=== PATIENT | male | born 1950 | race Caucasian/White ===

== ENCOUNTER 2016-11-22 16:04 | Emergency (ER) | payer MEDICAID, OTHER ==
[2016-11-22 16:17] VITALS: RESP 16; TEMP 98.8
--- NOTE | 2016-11-22 16:19 | EDPHY ---
H & P Stated Complaint: cough, fatigue, decreased sleep x 1 wk Time Seen by Provider: 11/22/16 16:18 HPI/ROS: Chief complaint: Cold symptoms History of present illness: This is a 66-year-old diabetic male who presents to the emergency department for cold symptoms. Patient reports the onset of symptoms over the last day. He reports tactile fevers, sore throat, a nonproductive cough and body aches. In addition he states he has had generalized malaise for the last week. She denies precipitating factors. He denies alleviating factors. He denies other associated signs or symptoms. Review of systems: A 10 point review of systems was obtained and other than described above was negative - Personal History Current Tetanus/Diphtheria Vaccine: Unsure Current Tetanus Diphtheria and Acellular Pertussis (TDAP): Unsure - Medical/Surgical History Hx Asthma: No Hx Chronic Respiratory Disease: No Hx Diabetes: Yes Hx Cardiac Disease: Yes Hx Renal Disease: No Hx Cirrhosis: No Hx Alcoholism: No Hx HIV/AIDS: No Hx Splenectomy or Spleen Trauma: No Other PMH: diabetes, cornary artery disease, depression, HTN - Social History Smoking Status: Never smoked - Physical Exam Exam: General Appearance: Alert,nontoxic. Eyes: Pupils equal and round no pallor or injection. ENT: Tympanic membranes, external auditory canals, external ears and surrounding soft tissue including over the mastoids are unremarkable. Nasopharynx is not injected. There is no rhinorrhea. Oropharynx is injected. There is no edema. There is no exudate. There is no asymmetry. The uvula is midline. No elevation of the tongue. There is no hoarseness, no drooling, no trismus, no stridor. Respiratory: There are no retractions, lungs are clear to auscultation. Cardiovascular: Regular rate and rhythm. Gastrointestinal: Abdomen is soft and non tender, no masses, bowel sounds normal. Neurological: Alert and oriented. Strength and sensation intact and symmetrical. No meningismus. Skin: Warm and dry, no rashes. Musculoskeletal: Neck is supple non tender. Extremities are symmetrical, full range of motion. Psychiatric: Patient is oriented X 3, there is no agitation. Constitutional: Initial Vital Signs Temperature (C) 37.1 C 11/22/16 16:14 Heart Rate 120 H 11/22/16 16:14 Respiratory Rate 16 11/22/16 16:14 Blood Pressure 137/88 H 11/22/16 16:14 O2 Sat (%) 94 11/22/16 16:14 O2 Delivery Mode Room Air Allergies/Adverse Reactions: No Known Allergies Allergy (Verified 11/22/16 16:11) Home Medications: Medication Instructions Recorded METOPROLOL TARTRATE 09/12/11 GLIPIZIDE 05/14/14 Metformin 1000 mg 05/14/14 Guaifenesin/Codeine Phosphate 10 ml PO Q6 #120 liquid 11/22/16 [Codeine-Guaifen 10-100 mg/5 ml] Lisinopril 11/22/16 Oseltamivir Phosphate [Tamiflu 75 75 mg PO BID #9 cap 11/22/16 mg (*)] Rosuvastatin Calcium 11/22/16 buPROPion 11/22/16 Medical Decision Making - Diagnostics Imaging: Chest x-ray with mild bronchitis ED Course/Re-evaluation: Patient seen under the supervision of my secondary supervising physician Dr. Frantz Campos. Patient presents to the emergency department for cold symptoms. Patient is nontoxic. Patient is evaluated as listed, he is influenza A positive. He is within treatment time frame. He is started on Tamiflu. Patient has further been IV hydrated. He states he is feeling well and is requesting to be discharged home. Patient will be discharged home on a full course of Tamiflu. Symptomatic care is discussed including the use of prescribed cough medication. He is asked to follow up with his primary care doctor for recheck. Strict return precautions are given. Patient voiced understanding and agreement with plan. Differential Diagnosis: Included but not limited to upper respiratory tract infection, influenza, pneumonia, bronchitis, unlikely sepsis - Data Points Laboratory Results: Laboratory Results 11/22/16 16:47 11/22/16 16:47 11/22/16 11/22/16 Unknown 16:47 WBC 8.33 10^3/uL (3.80-9.50) RBC 5.25 10^6/uL (4.40-6.38) Hgb 15.6 g/dL (13.7-17.5) Hct 44.5 % (40.0-51.0) MCV 84.8 fL (81.5-99.8) MCH 29.7 pg (27.9-34.1) MCHC 35.1 g/dL (32.4-36.7) RDW 12.2 % (11.5-15.2) Plt Count 194 10^3/uL (150-400) MPV 8.9 fL (8.7-11.7) Neut % (Auto) 80.9 H % (39.3-74.2) Lymph % (Auto) 5.0 L % (15.0-45.0) [place] % (Auto) 9.6 % (4.5-13.0) Eos % (Auto) 3.4 % (0.6-7.6) Baso % (Auto) 0.6 % (0.3-1.7) Nucleat RBC Rel Count 0.0 % (0.0-0.2) Absolute Neuts (auto) 6.74 H 10^3/uL (1.70-6.50) Absolute Lymphs (auto) 0.42 L 10^3/uL (1.00-3.00) Absolute Monos (auto) 0.80 10^3/uL (0.30-0.80) Absolute Eos (auto) 0.28 10^3/uL (0.03-0.40) Absolute Basos (auto) 0.05 10^3/uL (0.02-0.10) Absolute Nucleated RBC 0.00 10^3/uL (0-0.01) Immature Gran % 0.5 % (0.0-1.1) Immature Gran # 0.04 10^3/uL (0.00-0.10) Sodium 142 mEq/L (134-144) Potassium 4.4 mEq/L (3.5-5.2) Chloride 105 mEq/L (97-110) Carbon Dioxide 23 mEq/l (22-31) Anion Gap 14 mEq/L (8-16) BUN 14 mg/dL (7-23) Creatinine 0.9 mg/dL (0.7-1.3) Estimated GFR > 60 Glucose 131 H mg/dL (70-100) Calcium 9.1 mg/dL (8.5-10.4) Influenza Typ A,B (DFA) POSITIVE FOR FLU A H (NEGATIVE) Group A Strep Screen NEGATIVE (NEGATIVE) Group A Strep DNA Pending Medications Given: Discontinued Medications Sodium Chloride (Ns) 1,000 mls @ 0 mls/hr IV ONCE ONE PRN Reason: Wide Open Stop: 11/22/16 16:27 Last Admin: 11/22/16 16:50 Dose: 1,000 mls Sodium Chloride (Ns) 1,000 mls @ 0 mls/hr IV ONCE ONE PRN Reason: Wide Open Stop: 11/22/16 18:10 Last Admin: 11/22/16 18:11 Dose: 1,000 mls Oseltamivir Phosphate (Tamiflu) 75 mg PO EDNOW ONE Stop: 11/22/16 17:09 Last Admin: 11/22/16 17:46 Dose: 75 mg Departure - Departure Disposition: Home, Routine, Self-Care Clinical Impression: Influenza A Condition: Good Instructions: Influenza (ED) Additional Instructions: Follow-up with your primary care doctor this week for recheck Drink plenty of fluids to stay hydrated and get plenty of rest Take Tamiflu as prescribed until finished If symptoms worsen or new symptoms develop return to the emergency department for recheck Referrals: Fidelina Flaherty, PAC [Primary Care Provider] - As per Instructions Prescriptions: Guaifenesin/Codeine Phosphate [Codeine-Guaifen 10-100 mg/5 ml] 10 ml PO Q6 #120 liquid Oseltamivir Phosphate [Tamiflu 75 mg (*)] 75 mg PO BID #9 cap
[2016-11-22] MEDS ORDERED: NS 1,000 ML IV ONE ×2 (16:26→18:09)
[2016-11-22 17:00] LABS: % IMMATURE GRANULYOCYTES 0.5 % (0.0-1.1); ABSOLUTE IMMATURE GRANULOCYTES 0.04 10^3/uL (0.00-0.10); ADD DIFF? NO; ADD MORPH? NO; ADD SCAN? NO; ATYPICAL LYMPHOCYTE FLAG 0 (0-99); FRAGMENT RBC FLAG 0 (0-99); HEMATOCRIT 44.5 % (40.0-51.0); HEMOGLOBIN 15.6 g/dL (13.7-17.5); LEFT SHIFT FLG 0 (0-99); LIPEMIA HEMOLYSIS FLAG 90 (0-99); MEAN CELL HEMOGLOBIN 29.7 pg (27.9-34.1); MEAN CELL HEMOGLOBIN CONCENTR. 35.1 g/dL (32.4-36.7); MEAN CELL VOLUME 84.8 fL (81.5-99.8); MEAN PLATELET VOLUME 8.9 fL (8.7-11.7); PLATELET CLUMPS FLAG 0 (0-99); PLATELET COUNT 194 10^3/uL (150-400); RED BLOOD CELL COUNT 5.25 10^6/uL (4.40-6.38); RED CELL DISTRIBUTION WIDTH 12.2 % (11.5-15.2)
[2016-11-22] MEDS ORDERED: OSELTAMIVIR PHOSPHATE 75 MG CAP PO ONE (17:08)
[2016-11-22 17:16] LABS: ANION GAP 14 mEq/L (8-16); CALCIUM 9.1 mg/dL (8.5-10.4); CARBON DIOXIDE 23 mEq/l (22-31); CHLORIDE 105 mEq/L (97-110); CREATININE 0.9 mg/dL (0.7-1.3); GLOMERULAR FILTRATION RATE > 60; GLUCOSE 131 mg/dL (70-100); POTASSIUM 4.4 mEq/L (3.5-5.2); SODIUM 142 mEq/L (134-144)
--- NOTE | 2016-11-22 17:30 | DX ---
PA and lateral chest History: Dyspnea, cough. Comparison: None available. Findings: Mild peribronchial thickening is present without focal consolidation, pneumothorax, or pleu ral effusion. Heart size is upper normal. Degenerative change is present in the spine. Air distention of the stomach is noted. Impression: Mild bronchitis.
[2016-11-22 18:09] VITALS: BP 100/76; PULSE 108; O2SAT 92
== END 2016-11-22 19:49 | disposition home or self-care (01) ==
DX: J09.X2 Influenza due to identified novel influenza A virus with other respiratory manifestations (principal); E11.9 Type 2 diabetes mellitus without complications; I10 Essential (primary) hypertension; I25.10 Atherosclerotic heart disease of native coronary artery without angina pectoris

== ENCOUNTER 2017-01-19 14:15 | Emergency (ER) | payer MEDICAID, OTHER ==
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
[2017-01-19 16:39] VITALS: BP 114/80; PULSE 87; RESP 20; TEMP 98.6; O2SAT 93
== END 2017-01-19 16:37 | disposition home or self-care (01) ==
DX: S29.9XXA Unspecified injury of thorax, initial encounter (principal); S69.91XA Unspecified injury of right wrist, hand and finger(s), initial encounter; I10 Essential (primary) hypertension; E11.9 Type 2 diabetes mellitus without complications; I25.10 Atherosclerotic heart disease of native coronary artery without angina pectoris; V18.2XXA Unspecified pedal cyclist injured in noncollision transport accident in nontraffic accident, initial encounter

== ENCOUNTER → 2017-02-01 | Outpatient (CLI) | payer OTHER, MEDICAID | LOC: SBRMNEURO 22:44 | PROVIDERS: ATTEND Student in an Organized Health Care Education/Training Program | DX: G47.33 Obstructive sleep apnea (adult) (pediatric) (principal) ==

== ENCOUNTER 2017-06-30 07:23 | Emergency (ER) | payer OTHER, MEDICAID ==
--- NOTE | 2017-06-30 07:34 | EDPHY ---
HPI/HX/ROS/PE/MDM Narrative: CHIEF COMPLAINT: Lower abdominal / left flank pain. HPI: This patient is a 66 year old male with history of kidney stones complaining of lower abdominal and left flank pain onset this morning around 5am, 2.5 hours ago. He was woken up with lower abdominal cramping and developed developed left flank pain, diaphoresis, and nausea after 30-45 minutes. He took four Zantac pills with no relief. He states has had similar symptoms before with his prior kidney stones. He has had kidney stones three times in the past, the most recent being two years ago. He has not required surgical intervention for treatment. He denies vomiting, dysuria, hematuria, fever, or other associated symptoms. REVIEW OF SYSTEMS: Aside from elements discussed in the HPI, a comprehensive 10-point review of systems was reviewed and is negative. PMH: Kidney stones, diabetes mellitus, hyperlipidemia, hypertension SOCIAL HISTORY: Single. Lives in [place]. PCP JAZMYNE Weiss PHYSICAL EXAM: General:Patient is alert, in no acute distress. ENT:Eyes are normal to inspection. ENT inspection normal. Neck: Normal inspection. Full range of motion. Respiratory:No respiratory distress. Breath sounds normal bilaterally. Cardiovascular: Regular rate and rhythm. Strong peripheral pulses. Normal cap refill. Abdomen:The abdomen is nontender to palpation. There are no peritoneal signs. There are normal bowel sounds. Back: Left flank tenderness. Normal to inspection. Skin: Normal color. No rash. Warm and dry. Extremities: Normal appearance. Full range of motion. Neuro: Oriented x3. Normal motor function. Normal sensory function. ED Course: 66 year old male with history of kidney stones presents with lower abdominal cramping and left flank pain with associated nausea onset 2.5 hours ago. Plan for labs including UA, CBC, BMP. I discussed US vs CT scan with the patient, and he would prefer to proceed with abdominal CT. Plan to administer 30mg IV Toradol for symptom relief. 9:[address] Queen, Radiologist. CT abdomen shows bilateral nephrolithiasis. [id number] obstructive calculus noted in proximal left ureter at the L3-L4 level with associated mild to moderate left-sided hydronephrosis. Plan to discharge home in good condition with prescription for Percocet and Zofran for symptom relief. The patient will follow up with urology. Return precautions discussed. The patient is comfortable with this plan. MDM: This patient presents with signs and symptoms of kidney stone, confirmed by CT. I see no signs of pyelonephritis, sepsis, bowel obstruction, bowel perforation or appendicitis. - Data Points Imaging Results: Imaging Impressions Abdomen/Pelvis CT 06/30/17 07:40 Impression: 1. Bilateral nephrolithiasis. 2. Obstructive calculus proximal left ureter at the L3-L4 level with associated mild to moderate left-sided hydronephrosis. The calculus is visualized on the diesel maintenance electrician image. Attention: This CT examination is specifically designed to evaluate patients who are clinically suspected of having acute obstructive uropathy. This examination does not use radiographic contrast, and as such, provides only a limited evaluation of the abdomen, pelvis and retroperitoneum. If there is further clinical suspicion for pathological conditions other than obstructive uropathy, a complete CT evaluation of the abdomen and pelvis utilizing intravenous, oral, and rectal contrast should be considered. Findings discussed with the medical billing coordinator with Brandon Barrios MD at 9: 08 hour, 06/30/2017. Imaging: Discussed imaging studies w/ auto cleaner Radiologist Laboratory Results: Laboratory Results 06/30/17 08:05 06/30/17 08:05 06/30/17 06/30/17 08:05 08:05 WBC 7.54 10^3/uL 10^3/uL (3.80-9.50) RBC 5.43 10^6/uL 10^6/uL (4.40-6.38) Hgb 16.4 g/dL g/dL (13.7-17.5) Hct 48.2 % % (40.0-51.0) MCV 88.8 fL fL (81.5-99.8) MCH 30.2 pg pg (27.9-34.1) MCHC 34.0 g/dL g/dL (32.4-36.7) RDW 12.1 % % (11.5-15.2) Plt Count 237 10^3/uL 10^3/uL (150-400) MPV 9.3 fL fL (8.7-11.7) Neut % (Auto) 63.7 % % (39.3-74.2) Lymph % (Auto) 21.9 % % (15.0-45.0) [place] % (Auto) 8.2 % % (4.5-13.0) Eos % (Auto) 4.8 % % (0.6-7.6) Baso % (Auto) 0.9 % % (0.3-1.7) Nucleat RBC Rel Count 0.0 % % (0.0-0.2) Absolute Neuts (auto) 4.80 10^3/uL 10^3/uL (1.70-6.50) Absolute Lymphs (auto) 1.65 10^3/uL 10^3/uL (1.00-3.00) Absolute Monos (auto) 0.62 10^3/uL 10^3/uL (0.30-0.80) Absolute Eos (auto) 0.36 10^3/uL 10^3/uL (0.03-0.40) Absolute Basos (auto) 0.07 10^3/uL 10^3/uL (0.02-0.10) Absolute Nucleated RBC 0.00 10^3/uL 10^3/uL (0-0.01) Immature Gran % 0.5 % % (0.0-1.1) Immature Gran # 0.04 10^3/uL 10^3/uL (0.00-0.10) Sodium 141 mEq/L mEq/L (134-144) Potassium 4.7 mEq/L mEq/L (3.5-5.2) Chloride 102 mEq/L mEq/L (97-110) Carbon Dioxide 24 mEq/l mEq/l (22-31) Anion Gap 15 mEq/L mEq/L (8-16) BUN 18 mg/dL mg/dL (7-23) Creatinine 1.2 mg/dL mg/dL (0.7-1.3) Estimated GFR > 60 Glucose 144 mg/dL H mg/dL (70-100) Calcium 9.8 mg/dL mg/dL (8.5-10.4) Medications Given: Discontinued Medications Sodium Chloride (Ns) 1,000 mls @ 0 mls/hr IV EDNOW ONE; Wide Open PRN Reason: Protocol Stop: 06/30/17 07:41 Last Admin: 06/30/17 08:04 Dose: 1,000 mls Ketorolac Tromethamine (Toradol) 30 mg IVP EDNOW ONE Stop: 06/30/17 07:41 Last Admin: 06/30/17 08:03 Dose: 30 mg Ondansetron HCl (Zofran) 4 mg IVP EDNOW ONE Stop: 06/30/17 08:12 Last Admin: 06/30/17 08:14 Dose: 4 mg General Time Seen by Provider: 06/30/17 07:32 Initial Vital Signs: Initial Vital Signs Temperature (C) 36.4 C 06/30/17 07:28 Heart Rate 58 L 06/30/17 07:28 Respiratory Rate 18 06/30/17 07:28 Blood Pressure 158/91 H 06/30/17 07:28 O2 Sat (%) 96 06/30/17 07:28 O2 Delivery Mode Room Air Allergies/Adverse Reactions: No Known Allergies Allergy (Verified 11/22/16 16:11) Home Medications: Medication Instructions Recorded METOPROLOL TARTRATE 09/12/11 GLIPIZIDE 05/14/14 Metformin 1000 mg 05/14/14 Lisinopril 11/22/16 Oseltamivir Phosphate [Tamiflu 75 75 mg PO BID #9 cap 11/22/16 mg (*)] Rosuvastatin Calcium 11/22/16 buPROPion 11/22/16 Ondansetron Odt [Zofran Odt] 4 mg PO Q4PRN PRN #10 tab 06/30/17 oxyCODONE/APAP 5/325 [Percocet 5 - 10 mg PO Q4-6PRN PRN #14 tab 06/30/17 5/325] Departure - Departure Disposition: Home, Routine, Self-Care Clinical Impression: Calculus of left kidney Condition: Good Instructions: Kidney Stones (ED), How to Strain Your Urine (ED) Additional Instructions: 1. Take Percocet as prescribed as needed for severe pain. Do not take this medication with Tylenol, as it contains acetaminophen. 2. Take Zofran as prescribed as needed for nausea. 3. Follow up with your urologist within one week. We have referred you to our urologist store protection specialist. 4. Return to the emergency department for fever, severe pain, inability to urinate or other concerns. 5. Strain urine to try and catch the kidney stone and bring this to the urology appointment. Referrals: Fidelina Flaherty PAC [Primary Care Provider] - As per Instructions Hardik Billy MD [Medical Doctor] - As per Instructions Prescriptions: Ondansetron Odt [Zofran Odt] 4 mg PO Q4PRN PRN #10 tab PRN Reason: Nausea oxyCODONE/APAP 5/325 [Percocet 5/325] 5 - 10 mg PO Q4-6PRN PRN #14 tab PRN Reason: For Pain Report Scribed for: Brandon Barrios Report Scribed by: Shelly Tovar Date of Report: 06/30/17 Time of Report: 07:34 Physician Review and Approval Statement: Portions of this note were transcribed by an ED scribe. I personally performed the history, physical exam, and medical decision making; and confirm the accuracy of the information in the transcribed note.
[2017-06-30] MEDS ORDERED: KETOROLAC 30 MG/1 ML SDV IVP ONE (07:40)
[2017-06-30] MEDS ORDERED: NS 1,000 ML IV ONE (07:40)
[2017-06-30] MEDS ORDERED: ONDANSETRON 4 MG/2 ML VIAL ONE (07:45)
[2017-06-30] MEDS ORDERED: ONDANSETRON 4 MG/2 ML VIAL IVP ONE (08:11)
[2017-06-30 08:18] LABS: % IMMATURE GRANULYOCYTES 0.5 % (0.0-1.1); ABSOLUTE IMMATURE GRANULOCYTES 0.04 10^3/uL (0.00-0.10); ADD DIFF? NO; ADD MORPH? NO; ADD SCAN? NO; ATYPICAL LYMPHOCYTE FLAG 10 (0-99); FRAGMENT RBC FLAG 0 (0-99); HEMATOCRIT 48.2 % (40.0-51.0); HEMOGLOBIN 16.4 g/dL (13.7-17.5); LEFT SHIFT FLG 0 (0-99); LIPEMIA HEMOLYSIS FLAG 90 (0-99); MEAN CELL HEMOGLOBIN 30.2 pg (27.9-34.1); MEAN CELL VOLUME 88.8 fL (81.5-99.8); MEAN PLATELET VOLUME 9.3 fL (8.7-11.7); PLATELET CLUMPS FLAG 0 (0-99); PLATELET COUNT 237 10^3/uL (150-400); RED BLOOD CELL COUNT 5.43 10^6/uL (4.40-6.38); RED CELL DISTRIBUTION WIDTH 12.1 % (11.5-15.2)
[2017-06-30 08:39] LABS: ANION GAP 15 mEq/L (8-16); CALCIUM 9.8 mg/dL (8.5-10.4); CARBON DIOXIDE 24 mEq/l (22-31); CHLORIDE 102 mEq/L (97-110); CREATININE 1.2 mg/dL (0.7-1.3); GLOMERULAR FILTRATION RATE > 60; GLUCOSE 144 mg/dL (70-100); POTASSIUM 4.7 mEq/L (3.5-5.2); SODIUM 141 mEq/L (134-144)
[2017-06-30 09:45] VITALS: BP 132/76; PULSE 84; RESP 16; TEMP 97.9; O2SAT 95
== END 2017-06-30 09:43 | disposition home or self-care (01) ==
DX: N20.0 Calculus of kidney (principal); E11.9 Type 2 diabetes mellitus without complications; I10 Essential (primary) hypertension; E86.9 Volume depletion, unspecified; Z79.84 Long term (current) use of oral hypoglycemic drugs
CPT/HCPCS: 74176; 96361; 96374; 96375; 99285; J1885; J2405

== ENCOUNTER 2017-07-02 15:22 | Inpatient (IN) | payer OTHER, MEDICAID ==
--- NOTE | 2017-07-02 15:45 | EDPHY ---
H & P Time Seen by Provider: 07/02/17 15:43 HPI/ROS: Chief complaint. Kidney stone HPI. 66-year-old male seen in our emergency department 2 days ago with diagnosis of a 6 mm stone at the L3-L4 level. Multiple stones in both collecting systems of both kidneys. Patient has been using Percocet and Zofran but returns for inadequate pain relief. Continues to be nauseated. Pain is in the left flank but not really in the abdomen. No significant dysuria. No fever. Similar symptoms previously ROS Constitutional. no fever/chills, no weakness Eyes. no problems with vision ENT. no sore throat, no nasal drainage Cardiovascular. no chest pain Respiratory. no shortness of breath, no cough Abdominal. Left flank pain with nausea . no problems urinating MS. no calf pain/swelling, no neck/back pain, no joint pain Skin. no rash Lymph. no swollen glands Neuro. no headache, no dizziness, no difficulty walking or with speech Past Medical/Surgical History: Past medical history he significant for diabetes, coronary artery disease, hypertension, depression kidney stone Social History: Single, nonsmoker, no alcohol Smoking Status: Never smoked Physical Exam: General Appearance: Alert well-developed male moderate distress vital signs are stable Eyes: Pupils equal and round no pallor or injection. ENT, Mouth: Mucous membranes are moist. Respiratory: There are no retractions, lungs are clear to auscultation. Cardiovascular: Regular rate and rhythm. Gastrointestinal: Abdomen is soft and nontender, no masses, bowel sounds normal. Left flank pain however not worse with palpation Neurological: Awake and alert, sensory and motor exams grossly normal. Skin: Warm and dry, no rashes. Musculoskeletal: Neck is supple nontender. Extremities symmetrical, full range of motion. Psychiatric: Patient is oriented X 3, there is no agitation. Constitutional: Initial Vital Signs Temperature (C) 36.6 C 07/02/17 15:27 Heart Rate 67 07/02/17 15:27 Respiratory Rate 18 07/02/17 15:27 Blood Pressure 136/84 H 07/02/17 15:27 O2 Sat (%) 99 07/02/17 15:27 O2 Delivery Mode Room Air Allergies/Adverse Reactions: No Known Allergies Allergy (Verified 07/02/17 15:26) Home Medications: Medication Instructions Recorded METOPROLOL TARTRATE 09/12/11 GLIPIZIDE 05/14/14 Metformin 1000 mg 05/14/14 Lisinopril 11/22/16 Oseltamivir Phosphate [Tamiflu 75 75 mg PO BID #9 cap 11/22/16 mg (*)] Rosuvastatin Calcium 11/22/16 buPROPion 11/22/16 Ondansetron Odt [Zofran Odt] 4 mg PO Q4PRN PRN #10 tab 06/30/17 oxyCODONE/APAP 5/325 [Percocet 5 - 10 mg PO Q4-6PRN PRN #14 tab 06/30/17 5/325] Medical Decision Making - Diagnostics Imaging Results: Imaging Impressions Abdomen/Pelvis CT 07/02/17 15:52 Impression: 1. Mild to moderate left hydroureteronephrosis secondary to ureterolithiasis, with two obstructing calculi in the mid to proximal left ureter, measuring 6 and 7 mm, at the L4 vertebral body level. 2. Additional left nephrolithiasis. 3. Nonobstructing right nephrolithiasis. 4. Atherosclerotic aorta, without aneurysm. 5. Left lower lobe 5-mm nonspecific noncalcified pulmonary nodule for which follow-up noncontrast CT chest is recommended in one year. 6. Constipation. Attention: This CT examination is specifically designed to evaluate patients who are clinically suspected of having acute obstructive uropathy. This examination does not use radiographic contrast, and as such, provides only a limited evaluation of the abdomen, pelvis, and retroperitoneum. If there is further clinical suspicion for pathological conditions other than obstructive uropathy, a complete CT evaluation of the abdomen and pelvis utilizing intravenous, oral, and rectal contrast should be considered. Findings and recommendations discussed with Emergency Department physician, Vik Rudd M.D., at 1655 hours, on July 02, 2017. Final report concurs with initial preliminary interpretation. Noncontrast CT shows now 2 stones in the ureter where as 2 days ago there was only 1 stone. They are both mid to proximal ureter on the left. Once stone measures 6 mm the other 7 mm. There at the level of L3-4. Moderate proximal hydronephrosis. Incidental finding of left lower lobe pulmonary nodule with suggested follow-up in 1 year Procedures: IV normal saline. IV fentanyl, Toradol, Zofran Review of chart from 2 days ago as well as labs ED Course/Re-evaluation: Re-evaluation 5:00 p.m.. Patient is much more stable Patient and I discussed laboratory and imaging evaluation. We discussed treatment plan including recommendation for admission. He expresses understanding and agreement I consulted and discussed the case with Dr. Johnson, hospitalist, who agrees to the admission I consulted and discussed the case with Dr. Billy, urology, who will see the patient in consultation Differential Diagnosis: Patient has been running a creatinine of 0.9-1.2. Today the creatinine is 1.8. Likely the patient has some degree of dehydration with elevated creatinine however he does have fairly complete obstruction of the left ureter with moderate proximal hydronephrosis. I considered pyelonephritis and kidney stone well - Data Points Laboratory Results: Laboratory Results 07/02/17 16:05 07/02/17 16:05 07/02/17 07/02/17 07/02/17 16:05 16:05 16:05 WBC 14.81 10^3/uL H D 10^3/uL (3.80-9.50) RBC 5.04 10^6/uL 10^6/uL (4.40-6.38) Hgb 15.2 g/dL g/dL (13.7-17.5) Hct 44.0 % % (40.0-51.0) MCV 87.3 fL fL (81.5-99.8) MCH 30.2 pg pg (27.9-34.1) MCHC 34.5 g/dL g/dL (32.4-36.7) RDW 12.2 % % (11.5-15.2) Plt Count 235 10^3/uL 10^3/uL (150-400) MPV 9.7 fL fL (8.7-11.7) Neut % (Auto) 79.5 % H % (39.3-74.2) Lymph % (Auto) 8.6 % L % (15.0-45.0) [place] % (Auto) 9.7 % % (4.5-13.0) Eos % (Auto) 1.5 % % (0.6-7.6) Baso % (Auto) 0.2 % L % (0.3-1.7) Nucleat RBC Rel Count 0.0 % % (0.0-0.2) Absolute Neuts (auto) 11.79 10^3/uL H 10^3/uL (1.70-6.50) Absolute Lymphs (auto) 1.27 10^3/uL 10^3/uL (1.00-3.00) Absolute Monos (auto) 1.43 10^3/uL H 10^3/uL (0.30-0.80) Absolute Eos (auto) 0.22 10^3/uL 10^3/uL (0.03-0.40) Absolute Basos (auto) 0.03 10^3/uL 10^3/uL (0.02-0.10) Absolute Nucleated RBC 0.00 10^3/uL 10^3/uL (0-0.01) Immature Gran % 0.5 % % (0.0-1.1) Immature Gran # 0.07 10^3/uL 10^3/uL (0.00-0.10) Sodium 138 mEq/L mEq/L (134-144) Potassium 4.9 mEq/L mEq/L (3.5-5.2) Chloride 105 mEq/L mEq/L (97-110) Carbon Dioxide 19 mEq/l L mEq/l (22-31) Anion Gap 14 mEq/L mEq/L (8-16) BUN 21 mg/dL mg/dL (7-23) Creatinine 1.8 mg/dL H mg/dL (0.7-1.3) Estimated GFR 38 Glucose 113 mg/dL H mg/dL (70-100) Calcium 10.0 mg/dL mg/dL (8.5-10.4) Urine Color YELLOW Urine Appearance HAZY Urine pH 5.0 (5.0-7.5) Ur Specific [place] 1.015 (1.002-1.030) Urine Protein NEGATIVE (NEGATIVE) Urine Ketones NEGATIVE (NEGATIVE) Urine Blood NEGATIVE (NEGATIVE) Urine Nitrate NEGATIVE (NEGATIVE) Urine Bilirubin NEGATIVE (NEGATIVE) Urine Urobilinogen NEGATIVE EU EU (0.2-1.0) Ur Leukocyte Esterase NEGATIVE (NEGATIVE) Urine RBC 1-3 /hpf /hpf (0-3) Urine WBC 1-3 /hpf /hpf (0-3) Ur Epithelial Cells TRACE /lpf /lpf (NONE-1+) Urine Mucus TRACE /lpf /lpf (NONE-1+) Urine Glucose NEGATIVE (NEGATIVE) Medications Given: Discontinued Medications Fentanyl (Sublimaze) 100 mcg IVP EDNOW ONE Stop: 07/02/17 15:52 Last Admin: 07/02/17 16:00 Dose: 100 mcg Sodium Chloride (Ns) 1,000 mls @ 0 mls/hr IV EDNOW ONE; Wide Open PRN Reason: Protocol Stop: 07/02/17 15:52 Last Admin: 07/02/17 16:04 Dose: 1,000 mls Ketorolac Tromethamine (Toradol) 30 mg IVP EDNOW ONE Stop: 07/02/17 15:52 Last Admin: 07/02/17 16:03 Dose: 30 mg Ondansetron HCl (Zofran) 4 mg IVP EDNOW ONE Stop: 07/02/17 15:52 Last Admin: 07/02/17 16:04 Dose: 4 mg Departure - Departure Disposition: [facility] Inpatient Acute Clinical Impression: Calculus of left kidney Condition: Fair Referrals: [facility] [Other] - As per Instructions
[2017-07-02] MEDS ORDERED: ONDANSETRON 4 MG/2 ML VIAL IVP ONE (15:51)
[2017-07-02] MEDS ORDERED: fentaNYL 100 MCG/2 ML INJ IVP ONE (15:51)
[2017-07-02] MEDS ORDERED: KETOROLAC 30 MG/1 ML SDV IVP ONE (15:51)
[2017-07-02] MEDS ORDERED: NS 1,000 ML IV ONE (15:51)
[2017-07-02 16:17] LABS: % IMMATURE GRANULYOCYTES 0.5 % (0.0-1.1); ABSOLUTE IMMATURE GRANULOCYTES 0.07 10^3/uL (0.00-0.10); ADD DIFF? NO; ADD MORPH? NO; ADD SCAN? NO; ATYPICAL LYMPHOCYTE FLAG 0 (0-99); FRAGMENT RBC FLAG 0 (0-99); HEMOGLOBIN 15.2 g/dL (13.7-17.5); LEFT SHIFT FLG 0 (0-99); LIPEMIA HEMOLYSIS FLAG 90 (0-99); MEAN CELL HEMOGLOBIN 30.2 pg (27.9-34.1); MEAN CELL HEMOGLOBIN CONCENTR. 34.5 g/dL (32.4-36.7); MEAN CELL VOLUME 87.3 fL (81.5-99.8); MEAN PLATELET VOLUME 9.7 fL (8.7-11.7); PLATELET CLUMPS FLAG 0 (0-99); PLATELET COUNT 235 10^3/uL (150-400); RED BLOOD CELL COUNT 5.04 10^6/uL (4.40-6.38); RED CELL DISTRIBUTION WIDTH 12.2 % (11.5-15.2)
[2017-07-02 16:24] LABS: COLOR YELLOW; LEUKOCYTE ESTERASE,URINE NEGATIVE (NEGATIVE); NITRITE,URINE NEGATIVE (NEGATIVE)
[2017-07-02 16:30] LABS: MUCUS TRACE /lpf (NONE-1+)
[2017-07-02 16:34] LABS: ANION GAP 14 mEq/L (8-16); CARBON DIOXIDE 19 mEq/l (22-31); CHLORIDE 105 mEq/L (97-110); CREATININE 1.8 mg/dL (0.7-1.3); GLOMERULAR FILTRATION RATE 38; GLUCOSE 113 mg/dL (70-100); POTASSIUM 4.9 mEq/L (3.5-5.2); SODIUM 138 mEq/L (134-144)
[2017-07-02] MEDS ORDERED: NALOXONE HCL 0.4 MG/ML INJ IVP PRN (18:37)
[2017-07-02] MEDS ORDERED: ONDANSETRON 4 MG/2 ML VIAL IVP PRN (18:42)
[2017-07-02] MEDS ORDERED: PROMETHAZINE HCL 25 MG/ML INJ IVP PRN (18:42)
[2017-07-02] MEDS ORDERED: ACETAMINOPHEN 325 MG TAB PO PRN (18:42)
[2017-07-02] MEDS ORDERED: ONDANSETRON DISINTEGRATING 4 MG TAB PO PRN (18:42)
[2017-07-02] MEDS ORDERED: D50W 25 GM/50 ML SYR IVP PRN (18:52)
--- NOTE | 2017-07-02 19:33 | GHP ---
[f rep st] HISTORY AND PHYSICAL DATE OF ADMISSION: 07/02/2017 HISTORY OF PRESENT ILLNESS: The patient is a 66-year-old gentleman with history of hypertension, hy perlipidemia, diabetes, and nephrolithiasis. He was seen here 2 days ago with flank pain. At that time, he had a CAT scan showing bilateral nephrolithiasis with an obstructive calculus of 6 mm at th e L3-L4 level. This is essentially moderate hydronephrosis. He was discharged with pain medicines and nausea medicines but no Flomax. He did pretty well with a couple days, although today he had si gnificantly worse pain. He presents with nausea and worsening abdominal pain. He said he has had p retty poor p.o. intake secondary to inability to eat and drink during his nausea, pain. He has not had fever, chills, nausea, vomiting. REVIEW OF SYSTEMS: Complete 10-point review of systems conducted negative except as noted in the HP I. PAST MEDICAL HISTORY: 1. Hypertension. 2. Hyperlipidemia. 3. Episode of influenza. 4. Nephrolithiasis. ALLERGIES: No known drug allergies. HOME MEDICATIONS: We do not have an updated list, but appears to be rosuvastatin, metoprolol, metfo rmin, lisinopril, glipizide, bupropion. SOCIAL HISTORY: Drinks occasional alcohol. No tobacco. 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 FAMILY HISTORY: Negative for nephrolithiasis. PHYSICAL EXAMINATION: VITAL SIGNS: Temperature 36.6, blood pressure 136/84, pulse 67, breathing 18 times a minute, 99% on room air. GENERAL: No acute distress. Sclerae anicteric. Oropharynx elie r. Mucous membranes moist. NECK: Supple without lymphadenopathy or JVD. LUNGS: Clear to auscult ation bilaterally. HEART: S1, S2. ABDOMEN: Soft, nontender, nondistended. LOWER EXTREMITIES: N o edema. Calves nontender. SKIN: Without rash. NEUROLOGIC: Exam is nonfocal. LABORATORY: UA is remarkably totally negative. Sodium 138, potassium 4.9, chloride 105, bicarb 19, BUN 21, creatinine 1.8. This is above his baseline of about 1.2. Glucose 113, calcium 10. White count 14.8, hematocrit 44, platelets are 235,000. CT images reviewed and interpreted by me shows le ft-sided hydronephrosis, [id number] nature with 2 obstructing calculi in the proximal left ure ter, 6 and 7 mm respectively at the L4 body level. Additional left nephrolithiasis, nonobstructing right nephrolithiasis. Atherosclerotic aorta without aneurysm. Two left lower lobe 5 mm pulmonary nodule, which followup contrast CT is recommended in 1 year, as well as constipation. I have discussed the case Dr. Vik Rudd. ASSESSMENT/PLAN: This 66-year-old gentleman presents with nephrolithiasis, hydronephrosis, and kidn ey injury. 1. Nephrolithiasis. These stones are greater than 5 mm, unlikely to pass. We will strain his urin e and provide with Flomax. Urology will see him in the morning. He is n.p.o. Regarding symptom ma nagement, we will give him IV Phenergan and Dilaudid GEOMETRICIAN. 2. Kidney injury. This is secondary to a left kidney obstruction and poor p.o. intake. We will gi ve him IV fluids and follow. 3. Diabetes. I will put him on some lispro sliding scale. His last hemoglobin A1c was in a good r lucian of 7. 4. Prophylaxis. Pharmacologic prophylaxis indicated if in the hospital for greater than 24 hours. Given his likely need for surgical procedure, we hold and just provide SCDs now. 5. Hypertension. We will continue his medications and they have been reconciled. 6. Pain as above. DISPOSITION: Inpatient status. /[id number]/MODL
[2017-07-02] MEDS: TAMSULOSIN HCL 0.4 MG CAP PO SCH (21:07)
[2017-07-02] MEDS: NS 1,000 ML IV SCH (21:18)
[2017-07-02] MEDS: HYDROmorphONE/DILAUDID 6 MG/30 ML PCA IV PRN (21:18)
[2017-07-02] MEDS: INSULIN GLARGINE 100 UNITS/ML SYRINGE SC SCH (21:46)
[2017-07-02] MEDS: METOPROLOL SUCCINATE XR 25 MG TAB PO SCH (22:29)
[2017-07-03] MEDS: NS 1,000 ML IV SCH ×2 (05:16→22:59)
[2017-07-03 05:32] LABS: ANION GAP 10 mEq/L (8-16); CARBON DIOXIDE 23 mEq/l (22-31); CHLORIDE 105 mEq/L (97-110); CREATININE 1.7 mg/dL (0.7-1.3); GLOMERULAR FILTRATION RATE 41; GLUCOSE 91 mg/dL (70-100); POTASSIUM 4.3 mEq/L (3.5-5.2); SODIUM 138 mEq/L (134-144)
[2017-07-03] MEDS: INSULIN LISPRO 100 UNIT/ML SC SCH ×3 (08:04→18:35)
[2017-07-03] MEDS: TAMSULOSIN HCL 0.4 MG CAP PO SCH (08:58)
[2017-07-03] MEDS: buPROPion SR 150 MG TAB PO SCH (08:58)
[2017-07-03] MEDS: (Liraglutide [Victoza 2-Pak] 1.2 MG) PO SCH (08:59)
[2017-07-03] MEDS ORDERED: LIRAGLUTIDE 1.2 MG PO SCH (09:00)
[2017-07-03] MEDS ORDERED: MAGNESIUM HYDROXIDE 30 ML UDCUP PO PRN (13:21)
[2017-07-03] MEDS ORDERED: BISACODYL 10 MG SUPP PR PRN (13:21)
--- NOTE | 2017-07-03 13:28 | HOSPPROG ---
Hospitalist Progress Note Assessment/Plan: L hydronephrosis with 2 obstructing ureteral calculi -appreciate Dr Zambrano's assistance, possible removal in AM if not passing spontaneously KELI -continue IVF, follow creatinine HTN -hold MIRTA-I Hyperlipidemia -home med obesity constipation -bowel protocol, discussed sara important bc on pain meds type 2 DM -PO med, QHS long acting insulin, holding metformin depression -home med DVT prophy- lovenox FULL CODE PCP Dr Bee (sp?) ([facility]) Dispo- 1-2 more mdnts, depending upon pain and if surgical intervention needed Subjective: Pain OK with meds. No BM for several days. OK with surgery to remove if not passing. Dr Zambrano in earlier per RN, no note in chart yet. Denies CP/SOB/n/v. Objective: Vital Signs Temp Pulse Resp BP Pulse Ox 97.6 F 59 L 17 121/73 H 96 07/03/17 08:42 07/03/17 08:42 07/03/17 08:42 07/03/17 08:42 07/03/17 08:42 Laboratory Results 07/03/17 04:45 07/02/17 07/03/17 07/04/17 11:59 11:59 11:59 Intake Total 1998 Output Total 1100 Balance 898 - Pending Discharge Pending Discharge Within 48 Hours: Yes Pending Discharge Date: 07/05/17 Pending Discharge Time: 11:00 - Physical Exam Constitutional: no apparent distress, appears nourished, obese Eyes: anicteric sclera, EOMI Ears, Nose, Mouth, Throat: moist mucous membranes, hearing normal Cardiovascular: regular rate and rhythym, no murmur, rub, or gallop Respiratory: no respiratory distress, no rales or rhonchi, clear to auscultation Gastrointestinal: soft, non-tender abdomen, no palpable masses, No guarding, No rebound, No distension Skin: warm Psychiatric: interacting appropriately, not anxious, not encephalopathic, thought process linear ICD10 Worksheet Patient Problems: Problems Problem Status Onset Calculus of left kidney Acute
--- NOTE | 2017-07-03 18:05 | SOAPPROG ---
[facility] Progress Note Assessment/Plan: Assessment: Calculus of left kidney Acute Plan ureteroscopy Monday at pt desire Plan: as noted 07/03/17 18:03 Subjective: feeling fine and desires waiting on tx Objective: Vital Signs Temp Pulse Resp BP Pulse Ox 36.6 C 71 18 130/79 H 90 L 07/03/17 17:52 07/03/17 17:52 07/03/17 17:52 07/03/17 17:52 07/03/17 17:52 Laboratory Results 07/03/17 04:45 07/02/17 07/03/17 07/04/17 05:59 05:59 05:59 Intake Total 1997 1200 Output Total 900 200 Balance 1098 1000 Physical Exam - Physical Exam General Appearance: alert Respiratory: No respiratory distress Cardiac/Chest: regular rate, rhythm Abdomen: soft Back: No CVA tenderness Extremities: No calf tenderness Neuro/Psych: no motor/sensory deficits, alert, oriented x 3 ICD10 Worksheet Patient Problems: Problems Problem Status Onset Calculus of left kidney Acute
[2017-07-03] MEDS ORDERED: ceFAZolin 2 GM/DEXTROSE 100 ML IV ONE (18:06)
[2017-07-03] MEDS: POLYETHYLENE GLYCOL 3350 17 GM PKT PO SCH (18:35)
[2017-07-03] MEDS: INSULIN GLARGINE 100 UNITS/ML SYRINGE SC SCH (20:43)
[2017-07-03] MEDS: SENNOSIDES/DOCUSATE SODIUM TAB PO SCH (20:44)
[2017-07-03] MEDS: ROSUVASTATIN CALCIUM 20 MG TAB PO SCH (20:44)
[2017-07-03] MEDS: METOPROLOL SUCCINATE XR 25 MG TAB PO SCH (20:44)
[2017-07-03] MEDS ORDERED: INSULIN DETEMIR 30 UNIT SQ SCH ×2 (21:00)
[2017-07-03] MEDS: HYDROmorphONE/DILAUDID 6 MG/30 ML PCA IV PRN (23:30)
[2017-07-04 05:15] LABS: HEMATOCRIT 42.7 % (40.0-51.0); HEMOGLOBIN 14.7 g/dL (13.7-17.5); MEAN CELL HEMOGLOBIN 30.5 pg (27.9-34.1); MEAN CELL HEMOGLOBIN CONCENTR. 34.4 g/dL (32.4-36.7); MEAN CELL VOLUME 88.6 fL (81.5-99.8); RED BLOOD CELL COUNT 4.82 10^6/uL (4.40-6.38); RED CELL DISTRIBUTION WIDTH 11.9 % (11.5-15.2)
[2017-07-04 05:31] LABS: ANION GAP 15 mEq/L (8-16); CALCIUM 9.2 mg/dL (8.5-10.4); CARBON DIOXIDE 19 mEq/l (22-31); CHLORIDE 106 mEq/L (97-110); CREATININE 1.4 mg/dL (0.7-1.3); GLOMERULAR FILTRATION RATE 51; GLUCOSE 127 mg/dL (70-100); POTASSIUM 4.7 mEq/L (3.5-5.2); SODIUM 140 mEq/L (134-144)
[2017-07-04] MEDS: TAMSULOSIN HCL 0.4 MG CAP PO SCH (08:36)
[2017-07-04] MEDS: buPROPion SR 150 MG TAB PO SCH (08:36)
[2017-07-04] MEDS: SENNOSIDES/DOCUSATE SODIUM TAB PO SCH ×2 (08:36→21:30)
[2017-07-04] MEDS: INSULIN LISPRO 100 UNIT/ML SC SCH ×3 (08:36→17:52)
[2017-07-04] MEDS: (Liraglutide [Victoza 2-Pak] 1.2 MG) PO SCH (08:37)
[2017-07-04] MEDS: POLYETHYLENE GLYCOL 3350 17 GM PKT PO SCH (08:37)
[2017-07-04] MEDS: HYDROmorphONE/DILAUDID 6 MG/30 ML PCA IV PRN (09:04)
--- NOTE | 2017-07-04 12:41 | HOSPPROG ---
Hospitalist Progress Note Assessment/Plan: L hydronephrosis with 2 obstructing ureteral calculi -revwd care plan with Dr Zambrano, procedure today, likely DC in AM if does well post-op KELI -improved, continue IVF, follow creatinine HTN -hold MIRTA-I Hyperlipidemia -home med obesity constipation -bowel protocol type 2 DM -PO med, QHS long acting insulin, holding metformin depression -home med DVT prophy- lovenox FULL CODE PCP Dr Bee (sp?) ([facility]) Dispo- 1 more mdnts if surgical intervention successful and pain resolves Subjective: Having procedure today, no BM yet. Pain OK with meds. Some nausea, no vomiting. No CP/SOB. Objective: Vital Signs Temp Pulse Resp BP Pulse Ox 98.3 F 68 18 122/77 H 96 07/04/17 11:46 07/04/17 11:46 07/04/17 11:46 07/04/17 11:46 07/04/17 11:46 Laboratory Results 07/04/17 05:08 07/04/17 05:08 07/03/17 07/04/17 07/05/17 11:59 11:59 11:59 Intake Total 1997 3860 Output Total 1100 600 350 Balance 898 3260 -350 - Pending Discharge Pending Discharge Within 24 Hours: Yes Pending Discharge Date: 07/05/17 Pending Discharge Time: 11:00 - Physical Exam Constitutional: no apparent distress, appears nourished, uncomfortable Eyes: PERRL, anicteric sclera Ears, Nose, Mouth, Throat: moist mucous membranes Cardiovascular: regular rate and rhythym, no murmur, rub, or gallop, No edema Respiratory: no respiratory distress, no rales or rhonchi, clear to auscultation Gastrointestinal: normoactive bowel sounds, No guarding, No rebound, No distension Skin: warm, No rash Psychiatric: interacting appropriately, not anxious, not encephalopathic, thought process linear ICD10 Worksheet Patient Problems: Problems Problem Status Onset Calculus of left kidney Acute
--- NOTE | 2017-07-04 12:50 | PDHPUP ---
History & Physical Update H&P update statement: This history and physical update is based on an assessment of the patient which was completed after admission or registration (within 24 hours), but prior to the surgery/procedure. H&P update: H&P reviewed & patient examined, no change in patient's condition since H&P completed
[2017-07-04] MEDS ORDERED: ceFAZolin 2 GM/DEXTROSE 100 ML IV ONE (12:51)
[2017-07-04] MEDS ORDERED: LIDOCAINE 2% JELLY 20 ML (UROJECT) ONE (13:59)
[2017-07-04] MEDS ORDERED: IOPAMIDOL (ISOVUE-M 300) 15 ML VIAL ONE (13:59)
--- NOTE | 2017-07-04 14:10 | PDANEPAE ---
ANE Past Medical History - Cardiovascular History Hx Hypertension: Yes - Pulmonary History Hx Oxygen in Use at Home: No Hx Sleep Apnea: Yes Sleep Apnea Screening Result - Last Documented: Positive - Endocrine History Hx Diabetes: Yes ANE Patient History - Allergies Allergies/Adverse Reactions: No Known Allergies Allergy (Verified 07/02/17 15:26) - Home Medications Home Medications: glipiZIDE [Glipizide ER] 10 mg PO DAILY 05/14/14 [Last Taken 07/02/17] metFORMIN HCL [Glucophage 500 mg (*)] 1,000 mg PO BIDMEAL 05/14/14 [Last Taken 07/02/17 09:00] Lisinopril [Zestril 2.5 mg (*)] 2.5 mg PO DAILY 11/22/16 [Last Taken 07/02/17] Rosuvastatin Calcium [Crestor 20mg (*)] 20 mg PO HS 11/22/16 [Last Taken ] Aspirin [Aspirin 81mg (*)] 81 mg PO DAILY 07/02/17 [Last Taken 07/01/17] Insulin Detemir [Levemir Flextouch] 30 units SQ HS 07/02/17 [Last Taken 07/01/17 ] Liraglutide [Victoza 2-Shahram] 1.2 mg PO DAILY 07/02/17 [Last Taken 07/02/17] Metoprolol Succinate Xr [Toprol Xl 25 mg (*)] 25 mg PO HS 07/02/17 [Last Taken 07/01/17] buPROPion SR [Wellbutrin 150mg SR (*)] 300 mg PO DAILY 07/02/17 [Last Taken ] - NPO status NPO Since - Liquids (Date): 07/04/17 NPO Since - Liquids (Time): 00:00 NPO Since - Solids (Date): 07/04/17 NPO Since - Solids (Time): 00:00 - Smoking Hx Smoking Status: Never smoked ANE Labs/Vital Signs - Labs Result Diagrams: 07/04/17 05:08 07/04/17 05:08 - Vital Signs Blood Pressure: 122/77 Heart Rate: 68 Respiratory Rate: 18 O2 Sat (%): 96 Height: 187.96 cm Weight: 104.3 kg ANE Physical Exam - Airway Neck exam: FROM Mouth exam: normal dental/mouth exam - Pulmonary Pulmonary: no respiratory distress, no rales or rhonchi, clear to auscultation - Cardiovascular Cardiovascular: regular rate and rhythym, no murmur, rub, or gallop - ASA Status ASA Status: II ANE Anesthesia Plan Anesthesia Plan: GA w LMA
[2017-07-04] MEDS ORDERED: PROPOFOL 200 MG/20 ML VIAL ONE (14:14)
[2017-07-04] MEDS ORDERED: fentaNYL 100 MCG/2 ML INJ ONE ×2 (14:14→14:57)
[2017-07-04] MEDS ORDERED: LIDOCAINE 2% 5 ML SDV ONE (14:15)
[2017-07-04] MEDS ORDERED: LIDOCAINE 2% JELLY 5 ML TUBE ONE (14:15)
[2017-07-04] MEDS ORDERED: ONDANSETRON 4 MG/2 ML VIAL ONE (14:15)
[2017-07-04] MEDS ORDERED: NALOXONE HCL 0.4 MG/ML INJ IVP PRN (14:38)
[2017-07-04] MEDS ORDERED: ONDANSETRON 4 MG/2 ML VIAL IVP PRN (14:38)
[2017-07-04] MEDS ORDERED: ENALAPRILAT DIHYDRATE 1.25 MG/ML VIAL IVP PRN (14:38)
[2017-07-04] MEDS ORDERED: LR 500 ML IV PRN (14:38)
[2017-07-04] MEDS ORDERED: fentaNYL 100 MCG/2 ML INJ IVP PRN (14:38)
[2017-07-04] MEDS ORDERED: LABETALOL HCL 5 MG/ML 20 ML MDV IVP PRN (14:38)
[2017-07-04] MEDS ORDERED: PROMETHAZINE HCL 25 MG/ML INJ IVP PRN (14:38)
--- NOTE | 2017-07-04 15:50 | POSTOPPROG ---
Post Op Note Date of Operation: 07/04/17 Surgeon: Clinton Zambrano Anesthesiologist: doug Anesthesia: LMA Pre-op Diagnosis: left ureteral stone Post-op Diagnosis: same Procedure: ureteroscopy--dictated Inf/Abcess present in the surg proc area at time of surgery?: No EBL: Minimal Drains: Other (stent)
--- NOTE | 2017-07-04 15:52 | POSTANESTH ---
Post Anesthetic Evaluation Cardiovascular Status: Normal, Stable, Similar to Pre-Op Cond Respiratory Status: Normal, Stable, Similar to Pre-op Cond. Level of Consciousness/Mental Status: Can Participate in Eval, Mildly Sleepy, Arousable Pain Control: Adequate, Prn Tx Ordered Nausea/Vomiting Control: Adequate, Prn Tx Ordered Complications Possibly Related to Anesthesia: None Noted
[2017-07-04 17:49] LABS: ANION GAP 14 mEq/L (8-16); CALCIUM 9.1 mg/dL (8.5-10.4); CARBON DIOXIDE 20 mEq/l (22-31); CHLORIDE 104 mEq/L (97-110); CREATININE 1.2 mg/dL (0.7-1.3); GLOMERULAR FILTRATION RATE > 60; GLUCOSE 132 mg/dL (70-100); POTASSIUM 4.5 mEq/L (3.5-5.2); SODIUM 138 mEq/L (134-144)
--- NOTE | 2017-07-04 17:49 | GOP ---
[f rep st] OPERATIVE REPORT DATE OF OPERATION: 07/04/2017 SURGEON: Clinton Zambrano MD ANESTHESIOLOGIST: Jayson Cortez MD PREOPERATIVE DIAGNOSIS: Left ureteral stone with hydronephrosis. POSTOPERATIVE DIAGNOSIS: Left ureteral stone with hydronephrosis. PROCEDURE PERFORMED: Cystoscopy, retrograde ureteral pyelogram, ureteroscopy with stone manipulatio n, and placement of a stent under fluoroscopic control. FINDINGS: DESCRIPTION OF PROCEDURE: After appropriate anesthesia, prep and drape in normal sterile fashion, a nd normal time-out, cystoscope was passed into the bladder. He had mild BPH. The left ureteral agustin fice was cannulated with a Monarch catheter, retrograded. Revealed a proximal ureteral stone and so me nephrolithiasis and hydronephrosis above the stone. I was able to pass a guidewire beyond the st one. Then, a ureteral access sheath placed up to below the stone, and then with the flexible ureter oscope, passed it up and the stone dislodged and went up into the upper pole calyx. It was fragment ed using a holmium laser, and then there were 2 other stones throughout the kidney that were lasered , but because of the obstruction and the edema and kind of the inflammatory reaction of the obstruct ed renal pelvis, I got to the point where I was not able to really visualize the stones adequately. I felt they were of relatively small caliber, so I elected not to pursue it further because of the poor visibility. I was able to pass a 4.7 multi-length stent and placed it in the renal pelvis and it curled in the bladder. Uro-Jet placed in the urethra, Snowden catheter placed, and he will leave t he stent in and then we will remove the stent in approximately 10 days because of the diffuse inflam matory reaction of the renal pelvis and the ureter. No specimens obtained, and he tolerated the pro cedure well. /[id number]/MODL
[2017-07-04] MEDS: LACTULOSE 20 GM/30 ML UDCUP PO PRN ×2 (18:43→21:29)
[2017-07-04] MEDS: METOPROLOL SUCCINATE XR 25 MG TAB PO SCH (21:28)
[2017-07-04] MEDS: ROSUVASTATIN CALCIUM 20 MG TAB PO SCH (21:31)
[2017-07-04] MEDS: INSULIN GLARGINE 100 UNITS/ML SYRINGE SC SCH (21:38)
[2017-07-05 03:57] VITALS: O2SAT 96
[2017-07-05 07:33] VITALS: BP 153/96; PULSE 92; RESP 17; TEMP 98.4
[2017-07-05] MEDS: SENNOSIDES/DOCUSATE SODIUM TAB PO SCH (08:04)
[2017-07-05] MEDS: TAMSULOSIN HCL 0.4 MG CAP PO SCH (08:04)
[2017-07-05] MEDS: buPROPion SR 150 MG TAB PO SCH (08:04)
[2017-07-05] MEDS: POLYETHYLENE GLYCOL 3350 17 GM PKT PO SCH (08:05)
[2017-07-05] MEDS: INSULIN LISPRO 100 UNIT/ML SC SCH (08:06)
[2017-07-05] MEDS ORDERED: MAGNESIUM HYDROXIDE 30 ML UDCUP PO SCH (09:00)
[2017-07-05] MEDS ORDERED: (Liraglutide [Victoza 2-Pak] 1.2 MG) PO SCH (09:00)
--- NOTE | 2017-07-05 11:12 | GDS ---
[f rep st] DISCHARGE SUMMARY BRIEF HPI: This is a pleasant 66-year-old man who was admitted with a left ureteral stone, hydronep hrosis. After discussion of his options and potential risks and benefits, he underwent a cystoscopy with retrograde ureteral pyelogram, ureteroscopy with stone manipulation and placement of stent by Dr. Zambrano on 07/04/2017, without difficulty. The patient is being discharged home in good condition . He does have a stent in place and is to have this removed in our office in 10 days. We will disc harge him home with a prescription for Uribel to use for burning with urination. /[id number]/MODL
== END 2017-07-05 12:10 | disposition home or self-care (01) | DRG 694 ==
LOC: F1N 18:31
PROVIDERS: ADMIT Internal Medicine; ATTEND Internal Medicine
PROC: 0T778DZ Dilation of Left Ureter with Intraluminal Device, Via Natural or Artificial Opening Endoscopic (ICD-10-PCS; principal; 2017-07-04 13:45)
DX: N13.2 Hydronephrosis with renal and ureteral calculous obstruction (principal); N17.9 Acute kidney failure, unspecified; I10 Essential (primary) hypertension; E78.5 Hyperlipidemia, unspecified; E11.9 Type 2 diabetes mellitus without complications; E66.9 Obesity, unspecified; K59.00 Constipation, unspecified; Z79.4 Long term (current) use of insulin
CPT/HCPCS: 96374; C1758; C1769; C1894; C2625; J0690; J1170; J1815; J1885; J2405; J2550; J2704; J3010; Q9967

== ENCOUNTER 2017-08-12 18:46 | Emergency (ER) | payer OTHER, MEDICAID ==
[2017-08-12 19:05] VITALS: BP 104/73; PULSE 79; RESP 17; TEMP 98.8; O2SAT 94
--- NOTE | 2017-08-12 19:17 | EDPHY ---
H & P Stated Complaint: genital herpes outbreak is out of valacyclovir Time Seen by Provider: 08/12/17 19:15 HPI/ROS: HPI: This is a 66-year-old male complains of Chief Complaint: genital herpes outbreak is out of valacyclovir Location: Penis Quality: Herpes Duration: Since last night Signs and Symptoms:+ tingling, + itching, + redness, + sores on penis, + sensitive to touch Timing: Rapid onset Severity: [id number] Context: Patient has a history of diabetes and was diagnosed with herpes in his teenage years. His last outbreak was 1 month ago. He usually uses valacyclovir for 3 days but he has run out of his medication and it is the weekend. He complains of tingling in itchiness on his penis yesterday, late last night he developed sores better sensitive and painful to touch. No discharge. No fever. Denies penile discharge. Modifying Factors: Did not call primary care provider Comment: ROS: Constitutional: No fever, no chills, no weight loss Eyes: No blurred vision Respiratory: No shortness of breath, no cough Cardiovascular: No chest pain Gastrointestinal: No nausea, no vomiting no diarrhea Genitourinary: No dysuria Extremities: No myalgias Neurologic: No weakness, no numbness Skin: + rashe Hematologic: No bruising, no bleeding MEDICAL/SURGICAL/SOCIAL HISTORY: Medical history: Diabetes, cornary artery disease, depression, HTN, kidney stones Surgical history: denies Social history: Unemployed. CONSTITUTIONAL: Elderly white male, awake and alert, no obvious distress HEENT: Atraumatic and normocephalic, PERRL, EOMI. Tympanic membranes clear. Oropharynx clear, no exudate and moist pink mucosa. Airway patent. No lymphadenopathy. No meningismus. Cardiovascular: Normal S1/S2, regular rate, regular rhythm, without murmur rub or gallop. PULMONARY/CHEST: Symmetrical and nontender. Clear to auscultation bilaterally. Good air movement. No accessory muscle usage. ABDOMEN: Soft, nondistended, nontender, no rebound, no guarding, no peritoneal signs, no masses or organomegaly. No CVAT. : Descended testes, circumcised penis, 4 tiny, heart an inflamed papules on his shaft. No penile discharge. EXTREMITIES: 2/2 pulses, no deformities, no clubbing, no cyanosis or edema. NEUROLOGICAL: no focal neuro deficits. GCS 15. SKIN: Warm and dry, no erythema. no rash. Good capillary refill. Source: Patient Exam Limitations: No limitations - Personal History Current Tetanus/Diphtheria Vaccine: Unsure - Medical/Surgical History Hx Asthma: No Hx Chronic Respiratory Disease: No Hx Diabetes: Yes Hx Cardiac Disease: Yes Hx Renal Disease: Yes Hx Cirrhosis: No Hx Alcoholism: No Hx HIV/AIDS: No Hx Splenectomy or Spleen Trauma: No Other PMH: diabetes, cornary artery disease, depression, HTN, kidney stones - Social History Smoking Status: Never smoked Constitutional: Initial Vital Signs Temperature (C) 37.1 C 08/12/17 19:03 Heart Rate 79 08/12/17 19:03 Respiratory Rate 17 08/12/17 19:03 Blood Pressure 104/73 08/12/17 19:03 O2 Sat (%) 94 08/12/17 19:03 O2 Delivery Mode Room Air Allergies/Adverse Reactions: No Known Allergies Allergy (Verified 08/12/17 19:03) Home Medications: Medication Instructions Recorded glipiZIDE [Glipizide ER] 10 mg PO DAILY 05/14/14 metFORMIN HCL [Glucophage 500 mg 1,000 mg PO BIDMEAL 05/14/14 (*)] Lisinopril [Zestril 2.5 mg (*)] 2.5 mg PO DAILY 11/22/16 Rosuvastatin Calcium [Crestor 20mg 20 mg PO HS 11/22/16 (*)] Aspirin [Aspirin 81mg (*)] 81 mg PO DAILY 07/02/17 Insulin Detemir [Levemir Flextouch] 30 units SQ HS 07/02/17 Liraglutide [Victoza 2-Shahram] 1.2 mg PO DAILY 07/02/17 Metoprolol Succinate Xr [Toprol Xl 25 mg PO HS 07/02/17 25 mg (*)] buPROPion SR [Wellbutrin 150mg SR 300 mg PO DAILY 07/02/17 (*)] Valacyclovir HCl [Valacyclovir] 500 mg PO BID 7 Days #14 tablet 08/12/17 Medical Decision Making ED Course/Re-evaluation: Given valacyclovir; given 7 day course due to history of diabetes. Differential Diagnosis: Differential diagnosis includes candidiasis, dermatitis, herpes. 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 Wear cotton underwear. Try not to touch the area. If he touches area please wash her hands thoroughly with warm water and soap. Please inform your sexual partners. Take all medication as directed. Referrals: Fidelina Flaherty PAC [Primary Care Provider] - As per Instructions Prescriptions: Valacyclovir HCl [Valacyclovir] 500 mg PO BID 7 Days #14 tablet
[2017-08-12] MEDS ORDERED: ACYCLOVIR 400 MG TAB PO ONE (19:21)
[2017-08-12] MEDS ORDERED: valACYclovir 500 MG TAB PO ONE (19:25)
== END 2017-08-12 19:55 | disposition home or self-care (01) ==
DX: A60.01 Herpesviral infection of penis (principal); E11.9 Type 2 diabetes mellitus without complications; I25.10 Atherosclerotic heart disease of native coronary artery without angina pectoris; I10 Essential (primary) hypertension; Z79.4 Long term (current) use of insulin; Z79.82 Long term (current) use of aspirin; Z79.84 Long term (current) use of oral hypoglycemic drugs

== ENCOUNTER 2017-08-27 13:36 | Observation (INO) | payer OTHER, MEDICAID ==
--- NOTE | 2017-08-27 13:49 | EDPHY ---
H & P Stated Complaint: L flank pain x 2 days;+n/v; possible kidney stone Time Seen by Provider: 08/27/17 13:44 HPI/ROS: CHIEF COMPLAINT: "I think I have a kidney stone " HISTORY OF PRESENT ILLNESS: 67-year-old male history of recurrent nephrolithiasis complaining of left flank pain radiating to his abdomen since last evening with associated nausea. No vomiting. No bowel movement abnormality. No testicular or genitalia pain. No urinary abnormality. No trauma. No fever no chills. PRIMARY CARE PROVIDER:[facility]. Urology Dr. Clinton Zambrano REVIEW OF SYSTEMS: A ten point review of systems was performed and is negative with the exception of the items mentioned in the HPI PAST MEDICAL & SURGICAL HISTORY: Nephrolithiasis SOCIAL HISTORY: Nonsmoker PHYSICAL EXAM (Prior to examination, patient consented to physical exam, hands were washed and my usual and customary physical exam procedures followed) 1) GENERAL: Well-developed, well-nourished, alert and oriented. Appears uncomfortable 2) HEAD: Normocephalic, atraumatic 3) HEENT: Pupils equal, round, reactive to light bilaterally. Sclera anicteric. 4) NECK: Full range of motion, no meningeal signs. 5) LUNGS: Clear auscultation bilaterally, no wheezes, no rhonchi, no retractions. 6) HEART: Regular rate and rhythm, no murmur, no heave, no gallop. 7) ABDOMEN: No guarding, no rebound, no focal tenderness, negative McBurney's, negative Macias's, negative Rovsing's, negative peritoneal sign, 8) MUSCULOSKELETAL: Moving all extremities, no focal areas of tenderness, no obvious trauma. No peripheral edema or discoloration. 9) BACK: No CVA tenderness. 10) SKIN: No rash, no petechiae. 11) Psychiatric: Patient is oriented X 3, there is no agitation. 12) : Circumcised normal male external genitalia bilateral testicles nontender, bilateral cremasteric reflex present. DIFFERENTIAL DIAGNOSIS: in no particular order including but not limited to nephrolithiasis, pyelonephritis, diverticulitis, AAA - Personal History Current Tetanus Diphtheria and Acellular Pertussis (TDAP): Unsure - Medical/Surgical History Hx Asthma: No Hx Chronic Respiratory Disease: No Hx Diabetes: Yes Hx Cardiac Disease: Yes Hx Renal Disease: Yes Hx Cirrhosis: No Hx Alcoholism: No Hx HIV/AIDS: No Hx Splenectomy or Spleen Trauma: No Other PMH: diabetes, cornary artery disease, depression, HTN, kidney stones - Social History Smoking Status: Never smoked Constitutional: Initial Vital Signs Temperature (C) 36.4 C 08/27/17 13:40 Heart Rate 73 08/27/17 13:40 Respiratory Rate 18 08/27/17 13:40 Blood Pressure 143/96 H 08/27/17 13:40 O2 Sat (%) 98 08/27/17 13:40 O2 Delivery Mode Room Air Allergies/Adverse Reactions: No Known Allergies Allergy (Verified 08/27/17 13:40) Home Medications: Medication Instructions Recorded glipiZIDE [Glipizide ER] 10 mg PO DAILY 05/14/14 metFORMIN HCL [Glucophage 500 mg 1,000 mg PO BIDMEAL 05/14/14 (*)] Lisinopril [Zestril 2.5 mg (*)] 2.5 mg PO DAILY 11/22/16 Rosuvastatin Calcium [Crestor 20mg 20 mg PO HS 11/22/16 (*)] Aspirin [Aspirin 81mg (*)] 81 mg PO DAILY 07/02/17 Insulin Detemir [Levemir Flextouch] 30 units SQ HS 07/02/17 Liraglutide [Victoza 2-Shahram] 1.2 mg PO DAILY 07/02/17 Metoprolol Succinate Xr [Toprol Xl 25 mg PO HS 07/02/17 25 mg (*)] buPROPion SR [Wellbutrin 150mg SR 300 mg PO DAILY 07/02/17 (*)] Valacyclovir HCl [Valacyclovir] 500 mg PO BID 7 Days #14 tablet 08/12/17 Medical Decision Making - Diagnostics Imaging Results: Imaging Impressions Abdomen/Pelvis CT 08/27/17 14:31 Impression: 1. Moderate left hydronephrosis due to a 5 mm calculus in the mid left ureter. 2. Bilateral nephrolithiasis. 3. Tiny benign subpleural nodule in the left lower lobe is unchanged since 2010. No additional surveillance is necessary. Attention: This CT examination is specifically designed to evaluate patients who are clinically suspected of having acute obstructive uropathy. This examination does not use radiographic contrast, and as such, provides only a limited evaluation of the abdomen, pelvis, and retroperitoneum. If there is further clinical suspicion for pathological conditions other than obstructive uropathy, a complete CT evaluation of the abdomen and pelvis utilizing intravenous, oral, and rectal contrast should be considered. Findings discussed with emergency department physician export sales assistant, Raj Masters PA-C on August 27, 2017 at 4:30 p.m. ED Course/Re-evaluation: Care of patient under supervision of secondary supervising physician Dr Juan with whom I discussed the case . Patient has been re-evaluated with serial exams. He remains uncomfortable by most recent exam at 4:45 p.m.. We discussed his imaging results , states that is not feel comfortable being discharged concerned about pain control as this pain is currently not controlled. Plan will be admission to the hospital with Urology consultation. Phone consultation with on-call Urology Dr.Steven Ewing who agrees to consult. Patient has been NPO since last evening but states that he is not interested in a stent at this time. 5:21 p.m.: Phone consultation with hospitalist Dr. Acevedo who will admit patient - Data Points Laboratory Results: Laboratory Results 08/27/17 13:52 08/27/17 13:52 08/27/17 08/27/17 08/27/17 15:20 13:52 13:52 WBC 14.14 10^3/uL H 10^3/uL (3.80-9.50) RBC 5.29 10^6/uL 10^6/uL (4.40-6.38) Hgb 16.3 g/dL g/dL (13.7-17.5) Hct 46.3 % % (40.0-51.0) MCV 87.5 fL fL (81.5-99.8) MCH 30.8 pg pg (27.9-34.1) MCHC 35.2 g/dL g/dL (32.4-36.7) RDW 12.5 % % (11.5-15.2) Plt Count 262 10^3/uL 10^3/uL (150-400) MPV 9.8 fL fL (8.7-11.7) Neut % (Auto) 80.1 % H % (39.3-74.2) Lymph % (Auto) 8.9 % L % (15.0-45.0) Nance % (Auto) 7.4 % % (4.5-13.0) Eos % (Auto) 2.4 % % (0.6-7.6) Baso % (Auto) 0.6 % % (0.3-1.7) Nucleat RBC Rel Count 0.0 % % (0.0-0.2) Absolute Neuts (auto) 11.34 10^3/uL H 10^3/uL (1.70-6.50) Absolute Lymphs (auto) 1.26 10^3/uL 10^3/uL (1.00-3.00) Absolute Monos (auto) 1.04 10^3/uL H 10^3/uL (0.30-0.80) Absolute Eos (auto) 0.34 10^3/uL 10^3/uL (0.03-0.40) Absolute Basos (auto) 0.08 10^3/uL 10^3/uL (0.02-0.10) Absolute Nucleated RBC 0.00 10^3/uL 10^3/uL (0-0.01) Immature Gran % 0.6 % % (0.0-1.1) Immature Gran # 0.08 10^3/uL 10^3/uL (0.00-0.10) Sodium 143 mEq/L mEq/L (134-144) Potassium 4.5 mEq/L mEq/L (3.5-5.2) Chloride 106 mEq/L mEq/L (97-110) Carbon Dioxide 23 mEq/l mEq/l (22-31) Anion Gap 14 mEq/L mEq/L (8-16) BUN 18 mg/dL mg/dL (7-23) Creatinine 1.1 mg/dL mg/dL (0.7-1.3) Estimated GFR > 60 Glucose 91 mg/dL mg/dL (70-100) Calcium 9.9 mg/dL mg/dL (8.5-10.4) Total Bilirubin 1.4 mg/dL mg/dL (0.1-1.4) Conjugated Bilirubin 0.2 mg/dL mg/dL (0.0-0.5) Unconjugated Bilirubin 1.2 mg/dL H mg/dL (0.0-1.1) AST 29 IU/L IU/L (17-59) ALT 55 IU/L IU/L (21-72) Alkaline Phosphatase 64 IU/L IU/L (38-126) Total Protein 7.3 g/dL g/dL (6.3-8.2) Albumin 4.7 g/dL g/dL (3.5-5.0) Lipase 254 IU/L IU/L (23-300) Urine Color YELLOW Urine Appearance HAZY Urine pH 5.0 (5.0-7.5) Ur Specific Shorter 1.019 (1.002-1.030) Urine Protein NEGATIVE (NEGATIVE) Urine Ketones NEGATIVE (NEGATIVE) Urine Blood 1+ H (NEGATIVE) Urine Nitrate NEGATIVE (NEGATIVE) Urine Bilirubin NEGATIVE (NEGATIVE) Urine Urobilinogen NEGATIVE EU EU (0.2-1.0) Ur Leukocyte Esterase NEGATIVE (NEGATIVE) Urine RBC 3-5 /hpf H /hpf (0-3) Urine WBC 1-3 /hpf /hpf (0-3) Ur Epithelial Cells NONE SEEN /lpf /lpf (NONE-1+) Urine Mucus TRACE /lpf /lpf (NONE-1+) Urine Sperm PRESENT /hpf /hpf (NONE SEEN) Urine Glucose 1+ H (NEGATIVE) Medications Given: Discontinued Medications Lidocaine HCl 150 mg/ Sodium (Chloride) 115 mls @ 600 mls/hr IV EDNOW ONE Stop: 08/27/17 14:15 Last Admin: 08/27/17 14:10 Dose: 115 mls Sodium Chloride (Ns) 1,000 mls @ 3,000 mls/hr IV EDNOW ONE Stop: 08/27/17 14:23 Last Admin: 08/27/17 14:18 Dose: 1,000 mls Ketorolac Tromethamine (Toradol) 15 mg IVP EDNOW ONE Stop: 08/27/17 14:05 Last Admin: 08/27/17 14:09 Dose: 15 mg Ondansetron HCl (Zofran) 4 mg IVP EDNOW ONE Stop: 08/27/17 15:46 Last Admin: 08/27/17 15:47 Dose: 4 mg Tamsulosin HCl (Flomax) 0.4 mg PO EDNOW ONE Stop: 08/27/17 14:06 Last Admin: 08/27/17 14:16 Dose: 0.4 mg Departure - Departure Disposition: [facility] Clinical Impression: Left ureterolithiasis, Bilateral nephrolithiasis Hydronephrosis Qualifiers: Hydronephrosis type: with ureteral calculous obstruction Qualified Code(s): N13.2 - Hydronephrosis with renal and ureteral calculous obstruction Condition: Fair
[2017-08-27] MEDS ORDERED: LIDOCAINE 1% 150 MG in NS 100 ML IV ONE (14:04)
[2017-08-27] MEDS ORDERED: KETOROLAC 15 MG/1 ML SDV IVP ONE (14:04)
[2017-08-27] MEDS ORDERED: NS 1,000 ML IV ONE (14:04)
[2017-08-27] MEDS ORDERED: TAMSULOSIN HCL 0.4 MG CAP PO ONE (14:05)
[2017-08-27 14:12] LABS: % IMMATURE GRANULYOCYTES 0.6 % (0.0-1.1); ABSOLUTE IMMATURE GRANULOCYTES 0.08 10^3/uL (0.00-0.10); ADD DIFF? NO; ADD MORPH? NO; ADD SCAN? NO; ATYPICAL LYMPHOCYTE FLAG 0 (0-99); FRAGMENT RBC FLAG 0 (0-99); HEMATOCRIT 46.3 % (40.0-51.0); HEMOGLOBIN 16.3 g/dL (13.7-17.5); LEFT SHIFT FLG 0 (0-99); LIPEMIA HEMOLYSIS FLAG 90 (0-99); MEAN CELL HEMOGLOBIN 30.8 pg (27.9-34.1); MEAN CELL HEMOGLOBIN CONCENTR. 35.2 g/dL (32.4-36.7); MEAN CELL VOLUME 87.5 fL (81.5-99.8); MEAN PLATELET VOLUME 9.8 fL (8.7-11.7); PLATELET CLUMPS FLAG 0 (0-99); PLATELET COUNT 262 10^3/uL (150-400); RED BLOOD CELL COUNT 5.29 10^6/uL (4.40-6.38); RED CELL DISTRIBUTION WIDTH 12.5 % (11.5-15.2)
[2017-08-27 14:17] LABS: ALANINE AMINOTRANSFERASE 55 IU/L (21-72); ALBUMIN 4.7 g/dL (3.5-5.0); ALKALINE PHOSPHATASE 64 IU/L (38-126); ANION GAP 14 mEq/L (8-16); ASPARTATE AMINOTRANSFERASE 29 IU/L (17-59); BILIRUBIN,TOTAL 1.4 mg/dL (0.1-1.4); BILIRUBIN-CONJUGATED 0.2 mg/dL (0.0-0.5); BILIRUBIN-UNCONJUGATED 1.2 mg/dL (0.0-1.1); CALCIUM 9.9 mg/dL (8.5-10.4); CARBON DIOXIDE 23 mEq/l (22-31); CHLORIDE 106 mEq/L (97-110); CREATININE 1.1 mg/dL (0.7-1.3); GLOMERULAR FILTRATION RATE > 60; GLUCOSE 91 mg/dL (70-100); POTASSIUM 4.5 mEq/L (3.5-5.2); SODIUM 143 mEq/L (134-144); TOTAL PROTEIN 7.3 g/dL (6.3-8.2)
[2017-08-27 15:30] LABS: COLOR YELLOW; LEUKOCYTE ESTERASE,URINE NEGATIVE (NEGATIVE); NITRITE,URINE NEGATIVE (NEGATIVE)
[2017-08-27] MEDS ORDERED: ONDANSETRON 4 MG/2 ML VIAL IVP ONE (15:45)
[2017-08-27 15:48] LABS: MUCUS TRACE /lpf (NONE-1+)
[2017-08-27] MEDS ORDERED: LORazepam 0.5 MG TAB PO PRN (19:13)
[2017-08-27] MEDS ORDERED: ONDANSETRON 4 MG/2 ML VIAL IVP PRN (19:13)
[2017-08-27] MEDS ORDERED: ACETAMINOPHEN 325 MG TAB PO PRN (19:13)
[2017-08-27] MEDS ORDERED: PROMETHAZINE HCL 25 MG/ML INJ IVP PRN (19:13)
[2017-08-27] MEDS ORDERED: ONDANSETRON DISINTEGRATING 4 MG TAB PO PRN (19:13)
[2017-08-27] MEDS ORDERED: ZOLPIDEM TARTRATE 5 MG TAB PO PRN (19:13)
[2017-08-27] MEDS ORDERED: HYDROmorphONE/DILAUDID 1 MG/ML INJ IVP PRN (19:13)
[2017-08-27] MEDS ORDERED: oxyCODONE IR 5 MG TAB PO PRN (19:13)
[2017-08-27] MEDS ORDERED: valACYclovir 500 MG TAB PO PRN (19:14)
[2017-08-27] MEDS ORDERED: D50W 25 GM/50 ML SYR IVP PRN (19:15)
[2017-08-27] MEDS ORDERED: NS 1,000 ML IV SCH (19:15)
[2017-08-27] MEDS ORDERED: INSULIN GLARGINE 100 UNITS/ML SYRINGE SC SCH (21:00)
[2017-08-27] MEDS ORDERED: ROSUVASTATIN CALCIUM 20 MG TAB PO SCH (21:00)
[2017-08-27] MEDS ORDERED: METOPROLOL SUCCINATE XR 25 MG TAB PO SCH (21:00)
--- NOTE | 2017-08-27 21:45 | GHP ---
[f rep st] HISTORY AND PHYSICAL DATE OF ADMISSION: 08/27/2017 CHIEF COMPLAINT: Flank pain. HISTORY: This is a 67-year-old man who has a past medical history of multiple kidney stones, previou sly requiring stents, who presents with left flank pain with radiation to his abdomen very similar to prior episodes of kidney stones. He has not had fevers or chills. He has been able to urinate norm ally. He does have some nausea, but no vomiting. He is having normal bowel movements. PAST MEDICAL HISTORY: Includes: 1. Recurrent nephrolithiasis. 2. Hypertension. 3. Hyperlipidemia. PAST SURGICAL HISTORY: Multiple urinary stents. SOCIAL HISTORY: Patient is an occasional drinker. Denies alcohol. 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 FAMILY HISTORY: This was reviewed and noncontributory. REVIEW OF SYSTEMS: A 10-point review of systems obtained and negative except as per HPI. MEDICATIONS: At home include: 1. Glipizide. 2. Wellbutrin. 3. Valacyclovir. 4. Rosuvastatin. 5. Metoprolol. 6. Metformin. 7. Lisinopril. 8. Victoza. 9. Insulin Detemir. 10. Ibuprofen. 11. Aspirin. ALLERGIES: No known drug allergies. PHYSICAL EXAMINATION: VITAL SIGNS: BP 136/79, heart rate 73, respiratory rate 16, O2 saturation 96% on room air, temperature is 36.4. GENERAL APPEARANCE: Well-developed/well-nourished man. He is aw alexander and alert. He is in no acute distress. EYES: Anicteric. HEENT: Oropharynx clear. CARDIOVASC ULAR: Regular rate and rhythm, no MRG. PULMONARY: CTA bilaterally. Normal work of breathing. ABD OMEN: Soft, bowel sounds are present. He has some left flank tenderness. EXTREMITIES: No clubbing , cyanosis, or edema. SKIN: Warm, dry, well perfused. NEUROLOGIC/PSYCHIATRIC: Oriented, appropriate, pleasant. CLINICAL DATA: White blood cell count of 14. Chemistry unremarkable. Creatinine is 1.1. Urinalysi s shows 1+ blood, 3-[address], personally reviewed and interpreted, shows moderate left hydronephrosis and a 5 mm calc ulus in the left mid ureter. ASSESSMENT/PLAN: A 67-year-old man presenting with flank pain, found to be secondary to nephroureter olithiasis. 1. Nephroureterolithiasis. There is a 5 mm stone that is probably unlikely to pass on its own. Uro logy was consulted and had planned to put in a stent tonight, however, patient did want a wait and se e if the stone could pass without intervention. He will be placed on IV fluids, Flomax has been give n and will be continued. He will strain his urine. If this fails, he will require a stent in the mo rning, so he will be kept n.p.o. after midnight. 2. Diabetes. We will continue his home medications with the exception of metformin, which we will h old in favor of sliding scale insulin given the patient will be n.p.o. for quite some time. 3. Hypertension. I will continue his home medications including lisinopril. Somewhat mildly hypert ensive here, but this is likely being driven by pain. 4. Leukocytosis. This is likely a stress response. He does not have any signs of urinary or other infection on initial evaluation. 5. Hyperlipidemia. We will continue Crestor. 6. History of herpes. We will continue valacyclovir. DISPOSITION: Observation status. He will need less than a 48-hour stay for evaluation and managemen t of above. Patient is new to my care. Old records reviewed, summarized as per HPI and Past Medical History. Ca re plan reviewed with the ER physician, including plans for urology consult. /[id number]/MODL
[2017-08-27] MEDS: KETOROLAC 15 MG/1 ML SDV IVP SCH (23:57)
[2017-08-28 04:49] LABS: ANION GAP 9 mEq/L (8-16); CALCIUM 8.8 mg/dL (8.5-10.4); CARBON DIOXIDE 22 mEq/l (22-31); CHLORIDE 107 mEq/L (97-110); CREATININE 1.4 mg/dL (0.7-1.3); GLOMERULAR FILTRATION RATE 51; GLUCOSE 90 mg/dL (70-100); POTASSIUM 4.2 mEq/L (3.5-5.2); SODIUM 138 mEq/L (134-144)
[2017-08-28] MEDS: KETOROLAC 15 MG/1 ML SDV IVP SCH (05:33)
[2017-08-28 07:59] VITALS: BP 109/55; PULSE 65; RESP 14; TEMP 98.1; O2SAT 96
[2017-08-28] MEDS ORDERED: INSULIN LISPRO 100 UNIT/ML SC SCH (08:00)
[2017-08-28] MEDS: INSULIN GLARGINE 100 UNITS/ML SYRINGE SC SCH ×2 (08:43→11:59)
[2017-08-28] MEDS ORDERED: LISINOPRIL 5 MG TAB PO SCH (09:00)
[2017-08-28] MEDS ORDERED: TAMSULOSIN HCL 0.4 MG CAP PO SCH (09:00)
[2017-08-28] MEDS ORDERED: buPROPion XL 150 MG TAB PO SCH (09:00)
[2017-08-28] MEDS ORDERED: Liraglutide [Victoza 2-Pak] SC SCH (09:00)
--- NOTE | 2017-08-28 10:48 | GCON ---
[f rep st] CONSULTATION DATE OF CONSULTATION: 08/28/2017 REASON FOR CONSULTATION: Consult secondary to a left 5 mm mid-ureteral stone with hydronephrosis. HISTORY OF PRESENT ILLNESS: Patient states he started having pain yesterday. Was seen in the emerge ncy department and given pain relief. He states he preferred to be admitted in case his pain returns . He says he finds IV pain medicine to be preferential over p.o. pain medication. He states he like s to use the emergency department for his pain control. He has a history of stones. He has seen Dr. Clinton Zambrano in the past. He is generally able to pass most stones on his own. He has what sounds l william a history of noncompliance. He states he prefers not to go to doctor's offices. He prefers to h ave his care done in the hospital. The patient denies any current fevers, chills, flank pain, nausea , vomiting. He is urinating fine. He states he is completely asymptomatic and wishes to be discharg ed home. He states at the sign of any pain he will be returning to the emergency department since he prefers IV pain medication over p.o. pain medication. I explained to him that is probably inappropr iate use of the emergency department, and it may be best to follow up on an outpatient basis and to u se the p.o. pain medications as needed. His creatinine was 1.4 this morning. Urinalysis is essentia lly normal, besides 3-5 red cells. CBC had been normal in the past. PAST MEDICAL HISTORY: Significant for recurrent stones, hypertension, hyperlipidemia. PAST SURGICAL HISTORY: He has had a ureteral stent in the past. SOCIAL HISTORY: He denies alcohol. 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 FAMILY HISTORY: Reviewed and noncontributory. REVIEW OF SYSTEMS: A 10-point review of systems was obtained, essentially negative, except for HPI. Denies any chest pain, shortness of breath, nausea, vomiting. MEDICATIONS: Include glipizide, Wellbutrin, valacyclovir, rosuvastatin, metoprolol, metformin, lisin opril, Victoza, insulin, ibuprofen, and aspirin. ALLERGIES: Denies any medical allergies. PHYSICAL EXAMINATION: VITAL SIGNS: Blood pressure 109/55. Pulse was 73. LUNGS: Clear. HEART: R egular. ABDOMEN: Soft, nontender, nondistended. No flank tenderness. : Normal male genitalia. ASSESSMENT/PLAN: Patient is asymptomatic and desires discharge home. He states he will return to [facility] ER as needed for pain control. He prefers IV pain medication over p.o. pain medication. Recommend patient to follow up in the office for care of his stone. He understands these recommendations. /[id number]/MODL
--- NOTE | 2017-08-28 11:50 | ASDISCHSUM ---
Discharge Information Plan Status:Home with No Needs Medically Cleared to Leave:08/28/2017 Discharge Date:08/28/2017 CM D/C Disposition:Home, Routine, Self-Care ADT D/C Disposition:Home, Routine, Self-Care Projected Discharge Date:08/28/2017 01:00 PM Transportation at D/C:Family Discharge Delay Reason: Follow-Up Date:08/28/2017 01:00 PM Discharge Slot: Final Diagnosis:kIDNEY STONE Placement Information Patient Contact Information Contact Name:LOI Relationship:Sister Address: Work Phone: City:[place] Alternate Phone: [facility]/Zip Code:[place] Email: Financial Information Financial Class: Primary Plan Desc:MEDICARE OUTPATIENT Primary Plan Number:[id number] Secondary Plan Desc:MEDICAID HEALTH FIRST [place] OP Secondary Plan Number:[id number] Assessment Information [facility] CM Progress Note CM Note CM Note Notes: Patient was scheduled for surgery this morning but feels he has passed stone and want to discharge home. No additional Case management needs apparent at this time. Date Signed: 08/28/2017 11:49 AM Electronically Signed By:CATHERINE Jiménez Intervention Information Intervention Type:*ALFORD-Signed Date of Service:08/28/2017 09:21 AM Patient Type:Observation Staff Member:Nancy Sutton Hours: Discipline: Severity: Comment:
--- NOTE | 2017-08-28 16:04 | GDS ---
[f rep st] DISCHARGE SUMMARY DISCHARGE DIAGNOSES: Include: 1. Ureterolithiasis acute. 2. Hypertension. 3. Acute kidney injury. 4. Hyperlipidemia. HISTORY OF PRESENT ILLNESS: A 67-year-old male with a history of multiple kidney stones, who present s with complaints of flank pain. For details of patient's initial presentation, please see the Histo ry and Physical dated 08/27/2017. CONSULTATIVE SERVICES: Include Neurology. PROCEDURES: On 08/27/2017, patient underwent CT of the abdomen that showed moderate left hydronephro sis due to a 5 mm mid-ureteral calculus. HOSPITAL COURSE: By issue: 1. Ureterolithiasis: Patient was admitted and initiated on Flomax, IV fluids, and IV pain medicatio ns. Soon after the initial part of his hospitalization, his flank paid did resolve entirely. It is thought the patient potentially passed stone. Was seen by Urology the morning after presentation and patient was cleared for disposition home with outpatient Urology followup. Patient will continue on Flomax until seen by Dr. Zambrano in the outpatient setting. 2. Acute kidney injury: Patient had a slight bump in his creatinine from 1.1 to 1.4 the morning of presentation. Suspect likely multifactorial, related to anti-inflammatory NSAID medications and pote ntial hypovolemia initially related to his flank pain. Patient is being discharged with instructions to not use ongoing ibuprofen or his MIRTA inhibitor until his renal function is checked by his primary care provider on 09/01/2017. 3. Recurrent nephrolithiasis: Patient will follow with Dr. Zambrano in the outpatient setting. 4. Hyperlipidemia: Patient was continued on his home medications without change. 5. Hypertension: As above, patient is having his MIRTA inhibitor held at disposition and has been ins tructed to follow in his PCP clinic on 09/01/2017 for blood pressure check and BMP. PENDING STUDIES: At the time of this dictation, none. APPOINTMENTS: Include: 1. With patient's primary care provider, Dr. Flaherty, on 09/01/2017, for blood pressure check and c reatinine check. 2. With Dr. Zambrano for outpatient management of patient's recurrent nephrolithiasis and decisions rel ated to the appropriate time for discontinuation of newly initiated Flomax. I spent greater than 30 minutes in the planning and coordination of this discharge. /[id number]/MODL
== END 2017-08-28 12:35 | disposition home or self-care (01) ==
LOC: F1N 17:40
PROVIDERS: ADMIT Internal Medicine; ATTEND Internal Medicine
DX: N20.1 Calculus of ureter (principal); N13.30 Unspecified hydronephrosis; I10 Essential (primary) hypertension; N17.9 Acute kidney failure, unspecified; E78.5 Hyperlipidemia, unspecified
CPT/HCPCS: 74176; G0378; J1815; J1885; J2405

== ENCOUNTER 2017-08-29 08:48 | Emergency (ER) | payer OTHER, MEDICAID ==
[2017-08-29 08:54] VITALS: O2SAT 95
--- NOTE | 2017-08-29 09:09 | EDPHY ---
H & P Stated Complaint: Pain from kidney stone - diagnosed 08/27/17 Time Seen by Provider: 08/29/17 08:58 HPI/ROS: CHIEF COMPLAINT: Left flank pain HISTORY OF PRESENT ILLNESS: The patient presents to the ED for his 4th emergency department visit in 2 months with complaints of acute left flank pain that returned last night. The patient reportedly took 6 ibuprofen tablets throughout the evening. His symptoms of renal colic have improved however he is developed dyspepsia this morning. The patient did have a history of mild chronic renal insufficiency noted during his last hospitalization was advised not to take ibuprofen. The patient was prescribed Flomax which he has not yet filled. The patient did take acetaminophen at home without improvement of his symptoms. He had no additional pain medications to take. The patient was discharged from the hospital yesterday where he was readmitted with symptomatic left ureterolithiasis. The patient was seen in consultation by Urology but was pain free and ultimately discharged home. In reviewing the patient's CT scan he is known to have a left mid ureteral stone. The patient has had 3 CT scans the abdomen pelvis this year. The patient did have a stent placed in June of this year. REVIEW OF SYSTEMS: A comprehensive 10 point review of systems is otherwise negative aside from elements mentioned in the history of present illness. Source: Patient Exam Limitations: No limitations - Personal History Current Tetanus Diphtheria and Acellular Pertussis (TDAP): Unsure - Medical/Surgical History Hx Asthma: No Hx Chronic Respiratory Disease: No Hx Diabetes: Yes Hx Cardiac Disease: Yes Hx Renal Disease: Yes Hx Cirrhosis: No Hx Alcoholism: No Hx HIV/AIDS: No Hx Splenectomy or Spleen Trauma: No Other PMH: diabetes, cornary artery disease, depression, HTN, kidney stones - Social History Smoking Status: Never smoked - Physical Exam Exam: General Appearance: Alert, no distress Eyes: Pupils equal and round no pallor or injection ENT, Mouth: Mucous membranes moist Respiratory: There are no retractions, lungs are clear to auscultation Cardiovascular: Regular rate and rhythm Gastrointestinal: Minimal tenderness to palpation left upper quadrant, no appreciable CVA tenderness on exam Neurological: A&O, normal motor function, normal sensory exam, normal cranial nerves Skin: Warm and dry, no rashes Musculoskeletal: Neck is supple nontender Extremities: symmetrical, full range of motion Constitutional: Initial Vital Signs Temperature (C) 36.6 C 08/29/17 08:49 Heart Rate 71 08/29/17 08:49 Respiratory Rate 20 08/29/17 08:49 Blood Pressure 132/73 H 08/29/17 08:49 O2 Sat (%) 95 08/29/17 08:49 O2 Delivery Mode Room Air Allergies/Adverse Reactions: No Known Allergies Allergy (Verified 08/27/17 13:40) Home Medications: Medication Instructions Recorded glipiZIDE [Glipizide ER] 10 mg PO DAILY 05/14/14 Rosuvastatin Calcium [Crestor 20mg 20 mg PO HS 11/22/16 (*)] Insulin Detemir [Levemir Flextouch] 30 units SQ HS 07/02/17 Liraglutide [Victoza 2-Shahram] 1.2 mg SC DAILY 07/02/17 Metoprolol Succinate Xr [Toprol Xl 25 mg PO HS 07/02/17 25 mg (*)] Aspirin EC [Aspirin EC 81 mg (*)] 81 mg PO HS 08/27/17 Insulin Detemir [Levemir Flextouch] 18 units SC DAILY 08/27/17 Metformin HCl [Metformin 1000 mg] 1,000 mg PO BIDMEAL 08/27/17 Valacyclovir HCl [Valacyclovir] 500 mg PO BID PRN 08/27/17 buPROPion XL [Wellbutrin 150mg XL] 300 mg PO DAILY 08/27/17 Tamsulosin HCl [Flomax 0.4 MG (*)] 0.4 mg PO DAILY #30 cap 08/28/17 Ondansetron Odt [Zofran Odt] 4 mg PO Q4PRN PRN #20 tab 08/29/17 oxyCODONE IR [Oxycodone Ir (*)] 5 - 10 mg PO Q6 PRN #30 tab 08/29/17 Medical Decision Making ED Course/Re-evaluation: The patient presents to the ED with dyspepsia after taking NSAIDs for pain management of a kidney stone. The patient presents to the ED with minimal symptoms of renal colic. The patient was given a GI cocktail. The patient's laboratory studies demonstrated normal CBC in stable hematocrit. The patient's creatinine is also stable 1.4. The patient has been advised to discontinue the use of NSAIDs secondary to his renal insufficiency. The patient will be prescription for Oxy IR and Zofran. The patient is advised to follow up as scheduled with Urology and his primary care provider as scheduled. He is advised to return to the ED for intractable pain other concerns. The patient was re-evaluated at 10:11 a.m.. He states that he is feeling much better. He has no ongoing symptoms of dyspepsia. He denies any flank pain. The patient will be discharged home as mentioned above. Customary return precautions are given. Differential Diagnosis: Differential diagnosis considered includes acute renal failure, anemia, medication side effect - Data Points Laboratory Results: Laboratory Results 08/29/17 09:25 08/29/17 09:25 08/29/17 08/29/17 09:25 09:25 WBC 9.90 10^3/uL H 10^3/uL (3.80-9.50) RBC 4.49 10^6/uL 10^6/uL (4.40-6.38) Hgb 13.7 g/dL g/dL (13.7-17.5) Hct 38.7 % L % (40.0-51.0) MCV 86.2 fL fL (81.5-99.8) MCH 30.5 pg pg (27.9-34.1) MCHC 35.4 g/dL g/dL (32.4-36.7) RDW 12.6 % % (11.5-15.2) Plt Count 186 10^3/uL D 10^3/uL (150-400) MPV 9.7 fL fL (8.7-11.7) Neut % (Auto) 79.5 % H % (39.3-74.2) Lymph % (Auto) 8.2 % L % (15.0-45.0) Atlantic % (Auto) 9.3 % % (4.5-13.0) Eos % (Auto) 2.3 % % (0.6-7.6) Baso % (Auto) 0.4 % % (0.3-1.7) Nucleat RBC Rel Count 0.0 % % (0.0-0.2) Absolute Neuts (auto) 7.87 10^3/uL H 10^3/uL (1.70-6.50) Absolute Lymphs (auto) 0.81 10^3/uL L 10^3/uL (1.00-3.00) Absolute Monos (auto) 0.92 10^3/uL H 10^3/uL (0.30-0.80) Absolute Eos (auto) 0.23 10^3/uL 10^3/uL (0.03-0.40) Absolute Basos (auto) 0.04 10^3/uL 10^3/uL (0.02-0.10) Absolute Nucleated RBC 0.00 10^3/uL 10^3/uL (0-0.01) Immature Gran % 0.3 % % (0.0-1.1) Immature Gran # 0.03 10^3/uL 10^3/uL (0.00-0.10) Sodium 137 mEq/L mEq/L (134-144) Potassium 4.4 mEq/L mEq/L (3.5-5.2) Chloride 108 mEq/L mEq/L (97-110) Carbon Dioxide 19 mEq/l L mEq/l (22-31) Anion Gap 10 mEq/L mEq/L (8-16) BUN 21 mg/dL mg/dL (7-23) Creatinine 1.4 mg/dL H mg/dL (0.7-1.3) Estimated GFR 51 Glucose 125 mg/dL H mg/dL (70-100) Calcium 8.9 mg/dL mg/dL (8.5-10.4) Medications Given: Discontinued Medications Al Hydroxide/Mg Hydroxide (Maalox Susp) 30 ml PO ONCE ONE Stop: 08/29/17 09:21 Last Admin: 08/29/17 09:35 Dose: 30 ml Hyoscyamine Sulfate (Levsin, Hyomax-Sl) 0.25 mg PO ONCE ONE Stop: 08/29/17 09:21 Last Admin: 08/29/17 09:35 Dose: 0.25 mg Lidocaine (Lidocaine 2% Viscous) 15 ml PO ONCE ONE Stop: 08/29/17 09:21 Last Admin: 08/29/17 09:35 Dose: 15 ml Departure - Departure Disposition: Home, Routine, Self-Care Clinical Impression: Calculus of left kidney Condition: Good Instructions: Kidney Stones (ED) Additional Instructions: 1. Please follow-up with your primary care provider and urologist as scheduled. 2. Return to the ED for intractable pain, fever or vomiting. 3. Please take Oxy IR as needed for uncontrolled pain. 4. We recommend not taking ibuprofen or Aleve as you have a slightly elevated creatinine the ED. 5. Continue Flomax as prescribed. Referrals: [facility],. [Clinic] - As per Instructions Prescriptions: Ondansetron Odt [Zofran Odt] 4 mg PO Q4PRN PRN #20 tab PRN Reason: For Nausea oxyCODONE IR [Oxycodone Ir (*)] 5 - 10 mg PO Q6 PRN #30 tab PRN Reason: for pain
[2017-08-29] MEDS ORDERED: LIDOCAINE 2% VISCOUS 15 ML UDCUP PO ONE (09:20)
[2017-08-29] MEDS ORDERED: MAG HYDROX/AL HYDROX/SIMETH 30 ML UDCUP PO ONE (09:20)
[2017-08-29] MEDS ORDERED: HYOSCYAMINE SULFATE 0.125 MG TAB PO ONE (09:20)
[2017-08-29] MEDS ORDERED: MAG HYDROX/AL HYDROX/SIMETH 30 ML UDCUP ONE (09:34)
[2017-08-29] MEDS ORDERED: LIDOCAINE 2% VISCOUS 15 ML UDCUP ONE (09:34)
[2017-08-29 09:37] LABS: % IMMATURE GRANULYOCYTES 0.3 % (0.0-1.1); ABSOLUTE IMMATURE GRANULOCYTES 0.03 10^3/uL (0.00-0.10); ADD DIFF? NO; ADD MORPH? NO; ADD SCAN? NO; ATYPICAL LYMPHOCYTE FLAG 0 (0-99); FRAGMENT RBC FLAG 0 (0-99); HEMATOCRIT 38.7 % (40.0-51.0); HEMOGLOBIN 13.7 g/dL (13.7-17.5); LEFT SHIFT FLG 0 (0-99); LIPEMIA HEMOLYSIS FLAG 90 (0-99); MEAN CELL HEMOGLOBIN 30.5 pg (27.9-34.1); MEAN CELL HEMOGLOBIN CONCENTR. 35.4 g/dL (32.4-36.7); MEAN CELL VOLUME 86.2 fL (81.5-99.8); MEAN PLATELET VOLUME 9.7 fL (8.7-11.7); PLATELET CLUMPS FLAG 0 (0-99); PLATELET COUNT 186 10^3/uL (150-400); RED BLOOD CELL COUNT 4.49 10^6/uL (4.40-6.38); RED CELL DISTRIBUTION WIDTH 12.6 % (11.5-15.2)
[2017-08-29 09:45] LABS: ANION GAP 10 mEq/L (8-16); CALCIUM 8.9 mg/dL (8.5-10.4); CARBON DIOXIDE 19 mEq/l (22-31); CHLORIDE 108 mEq/L (97-110); CREATININE 1.4 mg/dL (0.7-1.3); GLOMERULAR FILTRATION RATE 51; GLUCOSE 125 mg/dL (70-100); POTASSIUM 4.4 mEq/L (3.5-5.2); SODIUM 137 mEq/L (134-144)
[2017-08-29 10:34] VITALS: BP 126/82; PULSE 65; RESP 16; TEMP 98.1
== END 2017-08-29 10:34 | disposition home or self-care (01) ==
DX: N20.0 Calculus of kidney (principal); E11.9 Type 2 diabetes mellitus without complications; I25.10 Atherosclerotic heart disease of native coronary artery without angina pectoris; I10 Essential (primary) hypertension; Z79.4 Long term (current) use of insulin; Z79.82 Long term (current) use of aspirin; Z79.84 Long term (current) use of oral hypoglycemic drugs

== ENCOUNTER → 2017-09-27 | Outpatient (CLI) | payer OTHER, MEDICAID | LOC: BRMIMAGING 08:12 | PROVIDERS: ATTEND Physician Assistant | DX: Z13.820 Encounter for screening for osteoporosis (principal); M85.89 Other specified disorders of bone density and structure, multiple sites ==